=== PATIENT | male | born 1970 | race Caucasian/White ===

== ENCOUNTER → 2018-06-06 10:13 | Outpatient (CLI) | payer OTHER, SELFPAY ==
--- NOTE | 2018-06-06 10:19 | US_ITS ---
PROCEDURES: ULTRASOUND AORTA REASON FOR EXAM: Male, 48 years old. Screening for abdominal aortic aneurysm. TECHNIQUE: Ultrasound evaluation of the aorta was performed with real-time and static alicea-scale imaging. COMPARISON: None. FINDINGS: There is no elongation or tortuosity of the abdominal aorta. Aorta measures: Proximal 3.0 cm. Middle 2.4 cm. Distal 1.9 cm. Aorta measure transversely: Proximal 3.0 cm. Middle 2.3 cm. Distal 1.9 cm. Right iliac artery measures: 1.0 cm. Right iliac artery measure transversely: 1.0 cm. Left iliac artery measures: 1.1 cm. Left iliac artery measure transversely: 1.0 cm. There is no demonstrated aneurysm.. US/Aorta IMPRESSION: Normal abdominal aorta. Electronically Signed: Tunde Galvan, at 10:39 EST , Service support ,
[2018-06-06 12:42] LABS: Anion Gap 7 (5-15); BUN 13 mg/dL (7-18); BUN/Creat Ratio 15.1 RATIO (10-20); Calcium,Total 9.2 mg/dL (8.5-10.1); Chloride 105 mmol/L (98-107); Cholesterol 190 mg/dL (200); Creatinine, Serum 0.86 mg/dL (0.70-1.30); EST Glomerular Filtration Rate 100 mL/min (>60); Est Glom Filt Rate - Afr Amer 121 mL/min (>60); Glucose 87 mg/dL (74-106); High Density Lipoprotein 41 mg/dL; Potassium 4.3 mmol/L (3.5-5.1); Sodium Level 141 mmol/L (136-145); Triglycerides 92 mg/dL; Very Low Density Lipoprotein 18 mg/dL (5-40)
--- OUTSIDE RECORDS SUMMARY | 2018-08-08 12:55 | XMS RPT_ITS ---
:1970 Author Organization OHIP Care Team Providers Name Role Phone Saúl Blair Attending Unavailable Saúl Blair Referring Unavailable Saúl Blair Primary Care Unavailable PROBLEMS PROBLEMS No Problem Records FoundPROCEDURES PROCEDURES No Procedure Records FoundRESULTS RESULTS BASIC METABOLIC Collected: 06/06/2018 Status: F Source: S[place] PROFILE (BMP) 11:02 AM [facility] REPOSITORY TYPE CODE TESTS RESULT OUT OF RANGE REFERENCE UNITS LAB L501.0100 74-106 mg/dL Normal GLU 87 Result Comment: Please note revised GLUCOSE reference range effective 2017. LAB L501.1000 7-18 mg/dL Normal BUN 13 LAB L501.1100 0.70-1.30 mg/dL Normal CREAT,SERUM 0.86 Result Comment: The validity of the calculated GFR AND GFRAA in patients over 70 years has not been determined. Clinical correlation is essential. LAB L501.1110 >60 mL/min Normal EST GFR 100 Result Comment: Non- GFR Calc LAB L501.1115 >60 mL/min Normal EST GFR - AA 121 Result Comment: GFR Calc LAB L501.1300 10-20 RATIO Normal BUN/CRE 15.1 LAB L501.2200 8.5-10.1 mg/dL CA Normal 9.2 LAB L501.5300 136-145 mmol/L NA Normal 141 LAB L501.5600 3.5-5.1 mmol/L K Normal 4.3 LAB L501.5900 98-107 mmol/L CL Normal 105 LAB L501.6100 21.0-32.0 mmol/L Normal CO2 29.0 LAB L501.6200 5-15 Normal GAP 7 Performed By: #### L500.2500, L500.4100, L501.9910 #### [facility] [address] [place], [address] LIPID PROFILE Collected: 06/06/2018 Status: F Source: SUSANNAH 11:02 AM [facility] REPOSITORY TYPE CODE TESTS RESULT OUT OF RANGE REFERENCE UNITS LAB L501.4900 200 mg/dL Normal CHOL 190 Result Comment: <200 mg/dL Desirable 200-240 mg/dL Borderline >240 mg/dL High Risk LAB L501.5000 mg/dL Normal TRIG 92 Result Comment: The drugs N-Acetylcysteine and Metamizole may falsely depress this assay. Serum Triglycerides Reference Interval Normal <150 mg/dL Borderline high 150 - 199 mg/dL High 200 - 499 mg/dL Very High > or = 500 mg/dL LAB L501.6400 mg/dL Normal HDL 41 Result Comment: The drugs N-Acetylcysteine and Metamizole may falsely depress this assay. Reference Range HDL <40 mg/dL Low HDL Cholesterol HDL >or= 60 mg/dL High HDL Cholesterol LAB L501.6500 0-130 mg/dL High LDL 131 LAB L501.6600 5-40 mg/dL Normal VLDL 18 Performed By: #### L500.2500, L500.4100, L501.9910 #### [facility] [address] [place], [address] PSA,TOTAL - ANNUAL Collected: 06/06/2018 Status: F Source: SUSANNA[place] SCREEN 11:02 AM [facility] REPOSITORY TYPE CODE TESTS RESULT OUT OF RANGE REFERENCE UNITS LAB L501.9910 0.00-4.00 ng/mL Normal PSA,TOT 1.00 SCREEN Result Comment: This test was performed using the TPSA assay method for the Kamin[employer] chemistry system. Values obtained with different assay methods cannot be used interchangably. When changing PSA assays in the course of monitoring a patient, additional sequential testing should be carried out to confirm baseline values. Performed By: #### L500.2500, L500.4100, L501.9910 #### [facility] [address] [place], [address] AORTA Observed: 06/06/2018 Status: F Source: SUSANNAH 10:19 AM [facility] REPOSITORY [facility] Imaging Services [address] [place] [address] Aorta MR#: [id number] Acct: [id number] Name: RAPHAEL TAVARES Rep #: [id number] : 1970 M 48 From: Tunde Galvan MD PCP: Saúl Blair MD Status: REG CLI Study: Aorta Date of Exam: 06/06/18 Exam# [id number] Ordering Dr: Allen Blair MD PROCEDURES: ULTRASOUND AORTA REASON FOR EXAM: Male, 48 years old. Screening for abdominal aortic aneurysm. TECHNIQUE: Ultrasound evaluation of the aorta was performed with real-time and static alicea-scale imaging. COMPARISON: None. FINDINGS: There is no elongation or tortuosity of the abdominal aorta. Aorta measures: Proximal 3.0 cm. Middle 2.4 cm. Distal 1.9 cm. Aorta measure transversely: Proximal 3.0 cm. Middle 2.3 cm. Distal 1.9 cm. Right iliac artery measures: 1.0 cm. Right iliac artery measure transversely: 1.0 cm. Left iliac artery measures: 1.1 cm. Left iliac artery measure transversely: 1.0 cm. There is no demonstrated aneurysm.. US/Aorta IMPRESSION: Normal abdominal aorta. Electronically Signed: Tunde Galvan, at 10:39 EST , Service support , CC: Saúl Blair MD Invoice Control Clerk: Signed ALLERGIES ALLERGIES No Allergies Records FoundENCOUNTERS ENCOUNTERS ADMIT/DISCHARGE ACCOUNT ADMITTING ENCOUNTER LOCATION SOURCE NUMBER CLASS 06/06/2018 [id number] Ambulatory [facility] 6 [facility] ing:US Repository PAYERS PAYERS ENCOUNTER GUARANTOR PAYER SUBSCRIBER SOURCE 06/06/2018 RAPHAEL L Primary RAPHAEL Gaston [id number] Insurance:AETNAPolicy REYNOLDSDOB: [facility] [place] Number: [id number] [place] [id number] Repository [address]Cji: (300) Date:[id number] [phone] () [id number] SIGIFREDO MARIN [id number]: 06/06/2018 Secondary RAPHAEL Gaston Insurance:[facility] PACKAGE REYNOLDSDOB: [facility] Number: [id number] [id number] Repository Date:2018-05-31 06/06/2018 Tertiary NOT GIVENVIJI Gaston Insurance:SELF PAY [facility] Number: Effective Repository Date:2018-05-31
== END ==
PROVIDERS: Family Provider Family Medicine; PCP Family Medicine; Referring Provider Family Medicine; Visit Provider Family Medicine
DX: Z13.1 Encounter for screening for diabetes mellitus (principal); Z13.220 Encounter for screening for lipoid disorders; Z12.5 Encounter for screening for malignant neoplasm of prostate; Z82.49 Family history of ischemic heart disease and other diseases of the circulatory system
CPT/HCPCS: 36415; 76775; 80048; 80061; 84153; G0103

== ENCOUNTER → 2018-12-27 16:58 | Outpatient (CLI) | payer OTHER, SELFPAY ==
--- NOTE | 2018-12-27 17:00 | RAD_ITS ---
STUDY: X-RAY - ABDOMEN/PELVIS REASON FOR EXAM: Male, 48 years old. Pain and decrease in appetite. TECHNIQUE: 2 view abdomen. COMPARISON: None. FINDINGS: Normal visualized lung bases. There is an unremarkable bowel gas pattern. There is no demonstrated free abdominal air. The visualized liver, spleen and kidneys are grossly normal in size and morphology. Degenerative changes lumbar spine. Pelvic calcifications likely phleboliths. RAD/Abd Inc Decub and/or Erect IMPRESSION: No acute findings. Electronically Signed: Andi Lyman, at 22:31 EDT Tel , Service support ,
--- NOTE | 2018-12-27 17:00 | RAD_ITS ---
STUDY: X-RAY CHEST REASON FOR EXAM: Male, 48 years old. Cough TECHNIQUE: PA and lateral views of the chest COMPARISON: None. FINDINGS: The lungs are clear. There are no pleural effusions. There is no pneumothorax. The heart is normal in size. The visualized osseous structures are within normal limits. RAD/Chest PA and Lateral IMPRESSION: No acute thoracic pathology. Electronically Signed: Gerardo Michaels, at 19:50 EDT Tel , Service support ,
[2018-12-27 17:38] LABS: Absolute Lymphocyte Count 0.68 X10^3/uL (0.83-4.51); Absolute Neutrophil Count 3.9 X10^3/uL (2.0-7.7); Basophil# 0.02 X10^3/uL; Basophil% 0.3 % (0-1); Eosinophil# 0.08 X10^3/uL; Eosinophils% 1.4 % (0-5); Hematocrit 37.2 % (40-54); Hemoglobin 11.4 g/dL (13.0-16.5); Lymphocyte # 0.68 X10^3/ul (4.0); Lymphocyte % 11.5 % (19-41); Mean Corp Hgb Conc 30.6 g/dL (32-36); Mean Corpuscular Hgb 23.8 pg (27.0-32.0); Mean Corpuscular Volume 77.8 fL (80-94); Mean Platelet Vol. 8.8 fl (6.2-12.0); Monocyte# 1.15 X10^3/uL; Monocyte% 19.5 % (0-10); NRBC Flagged by Analyzer 0 % (0-5); Neutrophil # 3.92 X10^3/uL (2.7-7.7); Neutrophil % 66.6 % (47-70); Platelet Count 373 K/mm3 (150-450); RBC Distribution Width CV 14.4 % (11.6-14.6); RBC Distribution Width SD 40.3 fl (35.1-43.9); Red Blood Count 4.78 M/mm3 (4.6-6.2); White Blood Count 5.9 K/mm3 (4.4-11.0)
[2018-12-27 17:42] LABS: Color, Urine Yellow (Yellow); Glucose, Dipstick Normal (Normal); Ketone-Dipstick 5 mg/dl (Negative); Leukocyte Esterase-Dipstick 25 /ul (Negative); Nitrite-Dipstick Negative (Negative); Occult Blood-Urine 10 /ul (Negative); Protein-Dipstick 30 mg/dl (Negative); Urine Clarity Clear (Clear); Urine Urobilinogen 8 mg/dl (Normal)
[2018-12-27 17:54] LABS: Erythrocyte Sedimentation Rate 55 mm/hr (0-20)
[2018-12-27 17:57] LABS: Urine Bilirubin Dipstick 1 mg/dL (Negative)
[2018-12-27 18:10] LABS: Microalbumin,Random Urine 27.4 mg/L (NO RANGE EST.); Microalbumin:Creatinine Ratio 9.5 mg/g CRE (<30 mg/g CRE)
[2018-12-27 18:12] LABS: ALB/GLOB Ratio 0.6 RATIO (0.9-2.4); AST(SGOT) 38 U/L (15-37); Alanine Aminotransfer ALT/SGPT 73 U/L (16-61); Alkaline Phosphatase 278 U/L (45-117); Anion Gap 9 (5-15); BUN 13 mg/dL (7-18); BUN/Creat Ratio 13.9 RATIO (10-20); Calcium,Total 9.5 mg/dL (8.5-10.1); Chloride 102 mmol/L (98-107); Creatinine, Serum 0.93 mg/dL (0.70-1.30); EST Glomerular Filtration Rate 91 mL/min (>60); Est Glom Filt Rate - Afr Amer 110 mL/min (>60); Ferritin 548 ng/mL (26-388); Glucose 91 mg/dL (74-106); Iron 19 ug/dL (65-175); Potassium 3.5 mmol/L (3.5-5.1); Sodium Level 139 mmol/L (136-145); Thyroid Stim Hormone (TSH) 0.81 uIU/mL (0.358-3.74)
== END ==
PROVIDERS: Family Provider Family Medicine; PCP Family Medicine; Referring Provider Family Medicine; Visit Provider Family Medicine
DX: R05 Cough (principal); R50.9 Fever, unspecified; R63.0 Anorexia; R53.83 Other fatigue
CPT/HCPCS: 36415; 71046; 74019; 80053; 81002; 82043; 82570; 82728; 83540; 84443; 85025; 85652; 86140; 87077; 87086; 87088

== ENCOUNTER → 2018-12-28 11:17 | Outpatient (CLI) | payer OTHER, SELFPAY ==
--- NOTE | 2018-12-28 11:36 | CT_ITS ---
STUDY: CT ABDOMEN AND PELVIS WITH CONTRAST REASON FOR EXAM: Male, 48 years old. Anemia. 6 week history of intermittent fevers and decreased appetite. RADIATION DOSAGE (If Supplied By Facility): CTDIvol = ( 17.54 ) mGy, DLP = ( 1171.58 ) mGycm TECHNIQUE: Transaxial images were obtained from the dome of the diaphragm to the symphysis pubis with oral contrast. 100mL IV/Oral Isovue 300 was administered. Sagittal and coronal images were reconstructed. Individualized dose optimization techniques were used for this CT. COMPARISON: None. FINDINGS: The visualized lung bases are unremarkable. There is a 1.4 cm lymph node in the right retrocrural space. The visualized portions of the heart are within normal limits. Normal liver. Normal gallbladder and extrahepatic biliary system. Normal spleen. Normal pancreas. Normal bilateral adrenal glands. Normal right kidney. Normal left kidney. Normal visualized stomach. Normal small intestine. There are scattered colonic diverticula consistent with diverticulosis. The appendix is visualized and appears normal. There is scattered atherosclerotic calcification of the abdominal aorta, without a demonstrated aneurysm. Normal inferior vena cava. There is retroperitoneal lymphadenopathy with enlarged nodes greater than 10-15mm in the short axis. Multiple enlarged lymph nodes are seen in the report of the mesentery. Normal urinary bladder. There are prostatic calcifications. Normal abdominal wall. Small benign-appearing bilateral inguinal lymph nodes. Lytic lesion is seen in the superior endplate of the L4 vertebrae as well as in the anterior superior aspect of the L1 vertebrae and left lateral anterior aspect of the L1 vertebrae. Bony metastasis should be ruled out. CT/Abdomen/Pelvis WITH Contrast IMPRESSION: Abnormal retroperitoneal lymphadenopathy as well as adenopathy in the root of the mesentery. Lymphoma should be ruled out. Lymph node is also seen in the right retrocrural region. Bony metastasis should be ruled out. Electronically Signed: Tunde Galvan, at 14:21 EDT , Service support ,
== END ==
PROVIDERS: Family Provider Family Medicine; PCP Family Medicine; Referring Provider Family Medicine; Visit Provider Family Medicine
DX: D64.9 Anemia, unspecified (principal); R74.8 Abnormal levels of other serum enzymes
CPT/HCPCS: 74177; Q9967

== ENCOUNTER → 2019-01-03 16:23 | Outpatient (CLI) | payer OTHER, SELFPAY ==
[2019-01-02 15:42] VITALS: BMI 28.7
--- NOTE | 2019-01-03 16:25 | US_ITS ---
STUDY: ABDOMINAL ULTRASOUND - RIGHT UPPER QUADRANT REASON FOR VISIT: Male, 48 years old. Elevated LFTs TECHNIQUE: Ultrasound evaluation of the right upper quadrant was performed with real-time and static alicea-scale imaging. TECHNICAL QUALITY: Limited. Examination limited by bowel gas. COMPARISON: CT scan from 12/28/2018 FINDINGS: Liver: The liver measures 17.5 cm. There is normal echogenicity of the liver. The bile ducts are mildly dilated according to the glass products inspector, however a recent CT does not show any evidence of intra or extrahepatic biliary dilatation.. There is hepatic color flow. The direction of portal flow is hepatopetal. There is no demonstrated mass lesion. Gallbladder: Normal distended gallbladder. The gallbladder wall measures 2 mm. There is a negative sonographic Ashraf's sign. There is no pericholecystic fluid. There are no gallstones. Common Bile Duct (C.B.D.): The common bile duct measures 5 mm. Pancreas: Visualized pancreas is sonographically normal. Right Kidney: Normal size of the right kidney. The right kidney measures 11.9 x 5.5 x 5.3 cm. Normal renal cortex. The right cortex measures 1.3 cm. There is no demonstrated renal mass or cyst. There is no right hydronephrosis. US/Abdomen Limited IMPRESSION: Manager [employer] notes possible intrahepatic biliary dilatation but a recent CT does not show evidence of this. Remaining visualized solid organs are unremarkable Electronically Signed: Tommy Pearce MD at 17:18 EDT , Service support ,
== END ==
PROVIDERS: Family Provider Family Medicine; PCP Family Medicine; Referring Provider Internal Medicine Hematology & Oncology; Visit Provider Internal Medicine Hematology & Oncology
DX: R59.1 Generalized enlarged lymph nodes (principal); R89.9 Unspecified abnormal finding in specimens from other organs, systems and tissues
CPT/HCPCS: 76705

== ENCOUNTER → 2019-01-05 09:04 | Outpatient (CLI) | payer OTHER, SELFPAY ==
[2019-01-02 15:42] VITALS: BMI 28.7
--- NOTE | 2019-01-05 09:10 | CT_ITS ---
STUDY: CT CHEST WITH CONTRAST REASON FOR EXAM: Male, 48 years old. Lymphadenopathy RADIATION DOSAGE (If Supplied By Facility): CTDIvol = ( 12.91 ) mGy, DLP = ( 594.79 ) mGycm TECHNIQUE: Transaxial imaging was performed following intravenous administration of 100ML IV Isovue 300. Individualized dose optimization techniques were used for this CT. COMPARISON: Chest radiograph on December 27, 2018 FINDINGS: The lungs are normal. There is no demonstrated pleural abnormality. Normal heart and pericardium. There are enlarged nodes in the posterior mediastinum in the lower thoracic cavity largest measuring 1.85 x 1.54 cm. Normal hilar regions. Normal enhanced pulmonary arteries. Normal aorta arch and descending thoracic aorta. Dorsal spine demonstrates spondylosis. Lytic pathologic fracture of L1. There are multiple enlarged periaortic nodes at the level of the left renal hilus CT/Chest WITH Contrast IMPRESSION: Posterior mediastinal adenopathy. Other findings as above Electronically Signed: Gerardo Arteaga MD at 18:12 EDT , Service support ,
== END ==
PROVIDERS: Family Provider Family Medicine; PCP Family Medicine; Referring Provider Internal Medicine Hematology & Oncology; Visit Provider Internal Medicine Hematology & Oncology
DX: R59.1 Generalized enlarged lymph nodes (principal)
CPT/HCPCS: 71260; Q9967

== ENCOUNTER → 2019-01-29 15:13 | Outpatient (CLI) | payer OTHER, SELFPAY ==
[2019-01-02 15:42] VITALS: BMI 28.7
[2019-01-29 16:16] LABS: Absolute Lymphocyte Count 0.68 X10^3/uL (0.83-4.51); Absolute Neutrophil Count 1.7 X10^3/uL (2.0-7.7); Basophil# 0.01 X10^3/uL; Basophil% 0.4 % (0-1); Eosinophils% 3.9 % (0-5); Hematocrit 32.4 % (40-54); Hemoglobin 9.7 g/dL (13.0-16.5); Lymphocyte # 0.68 X10^3/ul (4.0); Lymphocyte % 26.6 % (19-41); Mean Corp Hgb Conc 29.9 g/dL (32-36); Mean Corpuscular Hgb 22.6 pg (27.0-32.0); Mean Corpuscular Volume 75.3 fL (80-94); Monocyte# 0.03 X10^3/uL; Monocyte% 1.2 % (0-10); NRBC Flagged by Analyzer 0 % (0-5); Neutrophil # 1.69 X10^3/uL (2.7-7.7); Neutrophil % 65.9 % (47-70); POSITIVE MORPHOLOGY YES; Platelet Count 319 K/mm3 (150-450); RBC Distribution Width CV 20.5 % (11.6-14.6); RBC Distribution Width SD 54.3 fl (35.1-43.9); White Blood Count 2.6 K/mm3 (4.4-11.0)
[2019-01-29 16:27] LABS: ALB/GLOB Ratio 0.6 RATIO (0.9-2.4); AST(SGOT) 24 U/L (15-37); Alanine Aminotransfer ALT/SGPT 79 U/L (16-61); Albumin, Serum 2.8 g/dL (3.2-5.0); Alkaline Phosphatase 340 U/L (45-117); Anion Gap 4 (5-15); BUN 18 mg/dL (7-18); BUN/Creat Ratio 28.4 RATIO (10-20); Calcium,Total 9.7 mg/dL (8.5-10.1); Chloride 100 mmol/L (98-107); Creatinine, Serum 0.63 mg/dL (0.70-1.30); EST Glomerular Filtration Rate 142 mL/min (>60); Est Glom Filt Rate - Afr Amer 172 mL/min (>60); Globulin 4.8 g/dL (2.2-4.2); Glucose 124 mg/dL (74-106); Potassium 3.8 mmol/L (3.5-5.1); Protein, Total 7.6 g/dL (6.4-8.2); Sodium Level 135 mmol/L (136-145)
[2019-01-29 16:35] LABS: Differential Indicated SCAN CRITERIA MET
[2019-01-29 16:56] LABS: Anisocytosis 1+; Hypochromasia 1+; Microcytosis 1+; Platelet Estimate ADEQUATE (ADEQ)
[2019-01-29 16:57] LABS: Ovalocyte RARE
[2019-01-30 00:02] LABS: Xtra Tube EP Lab EXTRA TUBE
[2019-01-30 13:09] LABS: Pathologist Review Reviewed
== END ==
PROVIDERS: Family Provider Family Medicine; PCP Family Medicine
DX: C83.38 Diffuse large B-cell lymphoma, lymph nodes of multiple sites (principal)
CPT/HCPCS: 36415; 36592; 80053; 85025; A4216

== ENCOUNTER → 2019-02-01 15:27 | Outpatient (CLI) | payer OTHER, SELFPAY ==
[2019-01-02 15:42] VITALS: BMI 28.7
[2019-02-01 15:58] LABS: Absolute Lymphocyte Count 0.47 X10^3/uL (0.83-4.51); Absolute Neutrophil Count 0.1 X10^3/uL (2.0-7.7); Basophil# 0.01 X10^3/uL; Basophil% 1.4 % (0-1); Eosinophil# 0.04 X10^3/uL; Eosinophils% 5.8 % (0-5); Hemoglobin 9.4 g/dL (13.0-16.5); Lymphocyte # 0.47 X10^3/ul (4.0); Lymphocyte % 68.1 % (19-41); Mean Corp Hgb Conc 30.3 g/dL (32-36); Mean Corpuscular Hgb 23.2 pg (27.0-32.0); Mean Corpuscular Volume 76.4 fL (80-94); Mean Platelet Vol. 9.1 fl (6.2-12.0); Monocyte# 0.09 X10^3/uL; NRBC Flagged by Analyzer 0 % (0-5); Neutrophil # 0.08 X10^3/uL (2.7-7.7); Neutrophil % 11.7 % (47-70); POSITIVE COUNT YES; POSITIVE DIFFERENTIAL YES; POSITIVE MORPHOLOGY YES; Platelet Count 189 K/mm3 (150-450); RBC Distribution Width CV 21.3 % (11.6-14.6); RBC Distribution Width SD 54.8 fl (35.1-43.9); Red Blood Count 4.06 M/mm3 (4.6-6.2)
[2019-02-01 16:23] LABS: Differential Indicated SCAN CRITERIA MET; White Blood Count 0.7 K/mm3 (4.4-11.0)
[2019-02-01 16:35] LABS: Differential Comment SEE COMMENTS; Platelet Estimate ADEQUATE (ADEQ)
[2019-02-01 16:36] LABS: Anisocytosis RARE; Microcytosis RARE
[2019-02-02 15:19] LABS: Pathologist Review Reviewed
== END ==
PROVIDERS: Family Provider Family Medicine; PCP Family Medicine; Referring Provider Internal Medicine; Visit Provider Internal Medicine
DX: C83.38 Diffuse large B-cell lymphoma, lymph nodes of multiple sites (principal)
CPT/HCPCS: 36592; 85025; A4216

== ENCOUNTER → 2019-02-05 15:16 | Outpatient (CLI) | payer OTHER, SELFPAY ==
[2019-01-02 15:42] VITALS: BMI 28.7
[2019-02-05 16:15] LABS: Absolute Lymphocyte Count 0.74 X10^3/uL (0.83-4.51); Absolute Neutrophil Count 0.2 X10^3/uL (2.0-7.7); Basophil# 0.02 X10^3/uL; Basophil% 1.3 % (0-1); Eosinophil# 0.11 X10^3/uL; Eosinophils% 6.9 % (0-5); Hematocrit 33.1 % (40-54); Hemoglobin 10.1 g/dL (13.0-16.5); Lymphocyte # 0.74 X10^3/ul (4.0); Lymphocyte % 46.5 % (19-41); Mean Corp Hgb Conc 30.5 g/dL (32-36); Mean Corpuscular Hgb 23.8 pg (27.0-32.0); Mean Corpuscular Volume 77.9 fL (80-94); Mean Platelet Vol. 8.7 fl (6.2-12.0); Monocyte# 0.47 X10^3/uL; Monocyte% 29.6 % (0-10); NRBC Flagged by Analyzer 0 % (0-5); Neutrophil # 0.22 X10^3/uL (2.7-7.7); Neutrophil % 13.8 % (47-70); POSITIVE DIFFERENTIAL YES; POSITIVE MORPHOLOGY YES; Platelet Count 249 K/mm3 (150-450); RBC Distribution Width CV 23.6 % (11.6-14.6); RBC Distribution Width SD 63.7 fl (35.1-43.9); Red Blood Count 4.25 M/mm3 (4.6-6.2); White Blood Count 1.6 K/mm3 (4.4-11.0)
[2019-02-05 16:50] LABS: Differential Indicated SCAN CRITERIA MET
[2019-02-05 16:51] LABS: Platelet Estimate ADEQUATE (ADEQ)
[2019-02-05 16:52] LABS: Anisocytosis 1+; Microcytosis 1+
[2019-02-05 16:57] LABS: ALB/GLOB Ratio 0.7 RATIO (0.9-2.4); AST(SGOT) 17 U/L (15-37); Alanine Aminotransfer ALT/SGPT 29 U/L (16-61); Albumin, Serum 3.1 g/dL (3.2-5.0); Alkaline Phosphatase 230 U/L (45-117); Anion Gap 7 (5-15); BUN 11 mg/dL (7-18); BUN/Creat Ratio 15.3 RATIO (10-20); Calcium,Total 9.3 mg/dL (8.5-10.1); Chloride 103 mmol/L (98-107); Creatinine, Serum 0.72 mg/dL (0.70-1.30); EST Glomerular Filtration Rate 122 mL/min (>60); Est Glom Filt Rate - Afr Amer 148 mL/min (>60); Globulin 4.6 g/dL (2.2-4.2); Glucose 114 mg/dL (74-106); Protein, Total 7.7 g/dL (6.4-8.2); Sodium Level 139 mmol/L (136-145)
== END ==
PROVIDERS: Family Provider Family Medicine; PCP Family Medicine; Referring Provider Internal Medicine; Visit Provider Internal Medicine
DX: C83.38 Diffuse large B-cell lymphoma, lymph nodes of multiple sites (principal)
CPT/HCPCS: 36592; 80053; 85025; A4216

== ENCOUNTER → 2019-02-08 15:25 | Outpatient (CLI) | payer OTHER, SELFPAY ==
[2019-01-02 15:42] VITALS: BMI 28.7
[2019-02-08 15:50] LABS: Hemoglobin 10.2 g/dL (13.0-16.5); Mean Corpuscular Hgb 24.1 pg (27.0-32.0); Mean Corpuscular Volume 80.2 fL (80-94); Mean Platelet Vol. 8.6 fl (6.2-12.0); POSITIVE COUNT YES; POSITIVE DIFFERENTIAL YES; POSITIVE MORPHOLOGY YES; Platelet Count 358 K/mm3 (150-450); RBC Distribution Width CV 23.4 % (11.6-14.6); RBC Distribution Width SD 65.5 fl (35.1-43.9); Red Blood Count 4.24 M/mm3 (4.6-6.2); White Blood Count 2.7 K/mm3 (4.4-11.0)
[2019-02-08 15:56] LABS: Differential Indicated MANUAL DIFF
[2019-02-08 16:35] LABS: Blast 1 % (0-0); Eosinophil 4 % (0-5); Lymphocyte 37 % (19-41); Metamyelocyte 2 % (0-1); Monocyte 14 % (0-10); Myelocyte 3 (0-0); Neutrophil-Band 5 % (0-5); Neutrophil-Segmented 34 % (47-70); Total Cells Counted 100 (MANUAL DIFF)
[2019-02-08 16:37] LABS: Absolute Neutrophil Count 1.1 X10^3/uL (2.0-7.7); Neutrophil # 1.05 X10^3/uL (2.7-7.7)
[2019-02-08 16:38] LABS: Anisocytosis 4+; Differential Comment SCANNED
[2019-02-08 16:39] LABS: Platelet Estimate ADEQUATE (ADEQ)
[2019-02-09 14:42] LABS: Pathologist Review Reviewed
== END ==
PROVIDERS: Family Provider Family Medicine; PCP Family Medicine; Referring Provider Internal Medicine; Visit Provider Internal Medicine
DX: C83.38 Diffuse large B-cell lymphoma, lymph nodes of multiple sites (principal)
CPT/HCPCS: 36592; 85025; A4216

== ENCOUNTER → 2019-02-12 14:55 | Outpatient (CLI) | payer OTHER, SELFPAY ==
[2019-01-02 15:42] VITALS: BMI 28.7
[2019-02-12 15:37] LABS: Hematocrit 37.8 % (40-54); Hemoglobin 11.4 g/dL (13.0-16.5); Mean Corp Hgb Conc 30.2 g/dL (32-36); Mean Corpuscular Hgb 24.3 pg (27.0-32.0); Mean Corpuscular Volume 80.6 fL (80-94); Mean Platelet Vol. 8.4 fl (6.2-12.0); POSITIVE COUNT YES; POSITIVE MORPHOLOGY YES; Platelet Count 376 K/mm3 (150-450); RBC Distribution Width CV 23.9 % (11.6-14.6); RBC Distribution Width SD 67.9 fl (35.1-43.9); Red Blood Count 4.69 M/mm3 (4.6-6.2); White Blood Count 5.9 K/mm3 (4.4-11.0)
[2019-02-12 15:39] LABS: Differential Indicated MANUAL DIFF
[2019-02-12 15:54] LABS: ALB/GLOB Ratio 0.9 RATIO (0.9-2.4); AST(SGOT) 20 U/L (15-37); Alanine Aminotransfer ALT/SGPT 31 U/L (16-61); Albumin, Serum 3.5 g/dL (3.2-5.0); Alkaline Phosphatase 165 U/L (45-117); Anion Gap 8 (5-15); BUN 13 mg/dL (7-18); BUN/Creat Ratio 17.5 RATIO (10-20); Calcium,Total 9.4 mg/dL (8.5-10.1); Chloride 106 mmol/L (98-107); Creatinine, Serum 0.74 mg/dL (0.70-1.30); EST Glomerular Filtration Rate 118 mL/min (>60); Est Glom Filt Rate - Afr Amer 143 mL/min (>60); Glucose 106 mg/dL (74-106); Potassium 3.8 mmol/L (3.5-5.1); Protein, Total 7.5 g/dL (6.4-8.2); Sodium Level 142 mmol/L (136-145)
[2019-02-12 16:01] LABS: Basophil 2 % (0-1); Eosinophil 2 % (0-5); Lymphocyte 20 % (19-41); Metamyelocyte 1 % (0-1); Monocyte 7 % (0-10); Neutrophil-Band 2 % (0-5); Neutrophil-Segmented 66 % (47-70); Total Cells Counted 100 (MANUAL DIFF)
[2019-02-12 16:02] LABS: Anisocytosis 2+
[2019-02-12 16:03] LABS: Red Cell Morphology N CHROM NORMAL (NORM C&C)
[2019-02-12 16:04] LABS: Platelet Estimate ADEQUATE (ADEQ)
[2019-02-12 16:06] LABS: Absolute Lymphocyte Count 1.18 X10^3/uL (0.83-4.51)
[2019-02-13 14:13] LABS: Pathologist Review Reviewed
== END ==
PROVIDERS: Family Provider Family Medicine; PCP Family Medicine; Referring Provider Internal Medicine; Visit Provider Internal Medicine
DX: C83.38 Diffuse large B-cell lymphoma, lymph nodes of multiple sites (principal)
CPT/HCPCS: 36415; 36592; 80053; 85025; 86850; 86900; 86901; A4216

== ENCOUNTER → 2019-03-15 13:57 | Outpatient (CLI) | payer OTHER, SELFPAY ==
[2019-01-02 15:42] VITALS: BMI 28.7
--- NOTE | 2019-03-15 14:25 | NURSING ---
pt c/o of feeling lightheaded and hot during port access, chair reclined to semi-fowlers, finished accessing port, cool wash cloth applied to forehead and neck, pt report feeling better see vitals at discharge. Pt discharged home with at side.
[2019-03-15 14:30] VITALS: BP 118/98; PULSE 122; RESP 18; O2SAT 98
[2019-03-15 14:36] LABS: Hematocrit 37.7 % (40-54); Hemoglobin 11.8 g/dL (13.0-16.5); Mean Corp Hgb Conc 31.3 g/dL (32-36); Mean Corpuscular Hgb 25.9 pg (27.0-32.0); Mean Corpuscular Volume 82.7 fL (80-94); Mean Platelet Vol. 8.9 fl (6.2-12.0); POSITIVE COUNT YES; POSITIVE MORPHOLOGY YES; Platelet Count 132 K/mm3 (150-450); RBC Distribution Width CV 19.9 % (11.6-14.6); RBC Distribution Width SD 59.7 fl (35.1-43.9); Red Blood Count 4.56 M/mm3 (4.6-6.2); White Blood Count 15.4 K/mm3 (4.4-11.0)
[2019-03-15 14:41] LABS: Differential Indicated MANUAL DIFF
[2019-03-15 14:52] LABS: ALB/GLOB Ratio 1.1 RATIO (0.9-2.4); AST(SGOT) 15 U/L (15-37); Alanine Aminotransfer ALT/SGPT 47 U/L (16-61); Albumin, Serum 3.7 g/dL (3.2-5.0); Alkaline Phosphatase 108 U/L (45-117); Anion Gap 9 (5-15); BUN 15 mg/dL (7-18); BUN/Creat Ratio 18.6 RATIO (10-20); Calcium,Total 9.3 mg/dL (8.5-10.1); Chloride 105 mmol/L (98-107); Creatinine, Serum 0.81 mg/dL (0.70-1.30); EST Glomerular Filtration Rate 107 mL/min (>60); Est Glom Filt Rate - Afr Amer 130 mL/min (>60); Globulin 3.5 g/dL (2.2-4.2); Glucose 131 mg/dL (74-106); Potassium 3.3 mmol/L (3.5-5.1); Protein, Total 7.2 g/dL (6.4-8.2); Sodium Level 142 mmol/L (136-145)
[2019-03-15 15:01] LABS: Eosinophil 6 % (0-5); Lymphocyte 8 % (19-41); Metamyelocyte 2 % (0-1); Neutrophil-Band 3 % (0-5); Neutrophil-Segmented 81 % (47-70); Total Cells Counted 100 (MANUAL DIFF)
[2019-03-15 15:03] LABS: Absolute Neutrophil Count 12.9 X10^3/uL (2.0-7.7); Platelet Estimate ADEQUATE (ADEQ); Red Cell Morphology NORM C+C NORMAL (NORM C&C)
[2019-03-16 11:53] LABS: Pathologist Review Reviewed
== END ==
PROVIDERS: Family Provider Family Medicine; PCP Family Medicine; Referring Provider Internal Medicine; Visit Provider Internal Medicine
DX: C83.38 Diffuse large B-cell lymphoma, lymph nodes of multiple sites (principal)
CPT/HCPCS: 36591; 80053; 85025; A4216

== ENCOUNTER → 2019-03-19 13:36 | Outpatient (CLI) | payer OTHER, SELFPAY ==
[2019-01-02 15:42] VITALS: BMI 28.7
[2019-03-19 14:18] LABS: Hematocrit 38.7 % (40-54); Hemoglobin 12.1 g/dL (13.0-16.5); Mean Corp Hgb Conc 31.3 g/dL (32-36); Mean Corpuscular Hgb 26.2 pg (27.0-32.0); Mean Corpuscular Volume 83.8 fL (80-94); Mean Platelet Vol. 9.4 fl (6.2-12.0); POSITIVE COUNT YES; POSITIVE MORPHOLOGY YES; Platelet Count 133 K/mm3 (150-450); RBC Distribution Width CV 20.2 % (11.6-14.6); RBC Distribution Width SD 59.7 fl (35.1-43.9); Red Blood Count 4.62 M/mm3 (4.6-6.2)
[2019-03-19 14:20] LABS: Differential Indicated MANUAL DIFF
[2019-03-19 14:36] LABS: AST(SGOT) 13 U/L (15-37); Alanine Aminotransfer ALT/SGPT 31 U/L (16-61); Albumin, Serum 3.8 g/dL (3.2-5.0); Alkaline Phosphatase 113 U/L (45-117); Anion Gap 7 (5-15); BUN 12 mg/dL (7-18); BUN/Creat Ratio 14.7 RATIO (10-20); Calcium,Total 9.3 mg/dL (8.5-10.1); Chloride 103 mmol/L (98-107); Creatinine, Serum 0.82 mg/dL (0.70-1.30); EST Glomerular Filtration Rate 106 mL/min (>60); Est Glom Filt Rate - Afr Amer 128 mL/min (>60); Globulin 3.7 g/dL (2.2-4.2); Glucose 122 mg/dL (74-106); Potassium 3.9 mmol/L (3.5-5.1); Protein, Total 7.5 g/dL (6.4-8.2); Sodium Level 139 mmol/L (136-145)
[2019-03-19 14:47] LABS: Eosinophil 2 % (0-5); Lymphocyte 19 % (19-41); Metamyelocyte 1 % (0-1); Monocyte 11 % (0-10); Myelocyte 4 (0-0); Neutrophil-Segmented 63 % (47-70); Total Cells Counted 100 (MANUAL DIFF)
[2019-03-19 14:48] LABS: Anisocytosis 1+; Platelet Estimate SLT DEC (ADEQ); Red Cell Morphology N CHROM NORMAL (NORM C&C)
[2019-03-19 15:18] LABS: Absolute Neutrophil Count 4.4 X10^3/uL (2.0-7.7); Neutrophil # 4.41 X10^3/uL (2.7-7.7)
[2019-03-19 15:19] LABS: Absolute Lymphocyte Count 1.33 X10^3/uL (0.83-4.51); Lymphocyte # 1.33 X10^3/ul (4.0)
[2019-03-20 12:47] LABS: Pathologist Review Reviewed
== END ==
PROVIDERS: Family Provider Family Medicine; PCP Family Medicine; Referring Provider Internal Medicine; Visit Provider Internal Medicine
DX: C83.38 Diffuse large B-cell lymphoma, lymph nodes of multiple sites (principal)
CPT/HCPCS: 36591; 80053; 85025; A4216

== ENCOUNTER → 2019-03-23 07:50 | Outpatient (CLI) | payer OTHER, SELFPAY ==
[2019-01-02 15:42] VITALS: BMI 28.7
[2019-03-23 08:16] LABS: Hematocrit 37.7 % (40-54); Hemoglobin 11.6 g/dL (13.0-16.5); Mean Corp Hgb Conc 30.8 g/dL (32-36); Mean Corpuscular Hgb 26.4 pg (27.0-32.0); Mean Corpuscular Volume 85.7 fL (80-94); Mean Platelet Vol. 9.1 fl (6.2-12.0); POSITIVE COUNT YES; POSITIVE MORPHOLOGY YES; Platelet Count 209 K/mm3 (150-450); RBC Distribution Width CV 20.9 % (11.6-14.6); RBC Distribution Width SD 64.4 fl (35.1-43.9); White Blood Count 6.2 K/mm3 (4.4-11.0)
[2019-03-23 08:20] LABS: Differential Indicated MANUAL DIFF
[2019-03-23 08:42] LABS: Eosinophil 1 % (0-5); Lymphocyte 15 % (19-41); Monocyte 5 % (0-10); Neutrophil-Band 12 % (0-5); Neutrophil-Segmented 67 % (47-70); Total Cells Counted 100 (MANUAL DIFF)
[2019-03-23 08:45] LABS: Anisocytosis 2+; Ovalocyte 2+; Platelet Estimate ADEQUATE (ADEQ); Platelet Morphology LARGE
[2019-03-23 08:47] LABS: Absolute Lymphocyte Count 0.93 X10^3/uL (0.83-4.51); Absolute Neutrophil Count 4.9 X10^3/uL (2.0-7.7); Lymphocyte # 0.93 X10^3/ul (4.0)
[2019-03-27 10:41] LABS: Pathologist Review Reviewed
== END ==
PROVIDERS: Family Provider Family Medicine; PCP Family Medicine; Referring Provider Internal Medicine; Visit Provider Internal Medicine
DX: C83.38 Diffuse large B-cell lymphoma, lymph nodes of multiple sites (principal)
CPT/HCPCS: 36591; 85025; A4216

== ENCOUNTER → 2019-03-26 14:38 | Outpatient (CLI) | payer OTHER, SELFPAY ==
[2019-01-02 15:42] VITALS: BMI 28.7
[2019-03-26 15:15] LABS: Absolute Lymphocyte Count 0.92 X10^3/uL (0.83-4.51); Absolute Neutrophil Count 4.5 X10^3/uL (2.0-7.7); Basophil# 0.04 X10^3/uL; Basophil% 0.6 % (0-1); Eosinophil# 0.06 X10^3/uL; Eosinophils% 0.9 % (0-5); Hematocrit 36.3 % (40-54); Hemoglobin 11.1 g/dL (13.0-16.5); Lymphocyte # 0.92 X10^3/ul (4.0); Mean Corp Hgb Conc 30.6 g/dL (32-36); Mean Corpuscular Hgb 26.3 pg (27.0-32.0); Monocyte# 0.94 X10^3/uL; Monocyte% 14.3 % (0-10); NRBC Flagged by Analyzer 0 % (0-5); Neutrophil # 4.53 X10^3/uL (2.7-7.7); Neutrophil % 68.7 % (47-70); POSITIVE MORPHOLOGY YES; Platelet Count 294 K/mm3 (150-450); RBC Distribution Width CV 20.8 % (11.6-14.6); RBC Distribution Width SD 65.1 fl (35.1-43.9); Red Blood Count 4.22 M/mm3 (4.6-6.2); White Blood Count 6.6 K/mm3 (4.4-11.0)
[2019-03-26 15:24] LABS: ALB/GLOB Ratio 1.1 RATIO (0.9-2.4); AST(SGOT) 21 U/L (15-37); Alanine Aminotransfer ALT/SGPT 29 U/L (16-61); Albumin, Serum 3.7 g/dL (3.2-5.0); Alkaline Phosphatase 101 U/L (45-117); Anion Gap 7 (5-15); BUN 12 mg/dL (7-18); BUN/Creat Ratio 12.7 RATIO (10-20); Calcium,Total 9.2 mg/dL (8.5-10.1); Chloride 109 mmol/L (98-107); Creatinine, Serum 0.95 mg/dL (0.70-1.30); EST Glomerular Filtration Rate 89 mL/min (>60); Est Glom Filt Rate - Afr Amer 108 mL/min (>60); Globulin 3.5 g/dL (2.2-4.2); Glucose 98 mg/dL (74-106); Potassium 3.8 mmol/L (3.5-5.1); Protein, Total 7.2 g/dL (6.4-8.2); Sodium Level 142 mmol/L (136-145)
[2019-03-26 15:55] LABS: Differential Comment SCANNED
[2019-03-26 15:56] LABS: Differential Indicated SCAN CRITERIA MET
== END ==
PROVIDERS: Family Provider Family Medicine; PCP Family Medicine; Referring Provider Internal Medicine; Visit Provider Internal Medicine
DX: C83.38 Diffuse large B-cell lymphoma, lymph nodes of multiple sites (principal)
CPT/HCPCS: 36591; 80053; 85025; A4216

== ENCOUNTER 2019-04-27 13:44 | Inpatient (IN) | payer OTHER, SELFPAY ==
[2019-01-02 15:42] VITALS: BMI 28.7
[2019-04-27] VITALS (9 sets, daily range): BP systolic 104–145; BP diastolic 73–98; PULSE 68–128; RESP 16–18; TEMP 36.8–38.8; O2SAT 95–98; BMI 29.4
--- NOTE | 2019-04-27 13:49 | ED.RN ---
this rn informed dr naik of sepsis alert.
[2019-04-27 14:50] LABS: Absolute Lymphocyte Count 0.25 X10^3/uL (0.83-4.51); Absolute Neutrophil Count 0.1 X10^3/uL (2.0-7.7); Basophil# 0.01 X10^3/uL; Eosinophil# 0.08 X10^3/uL; Eosinophils% 15.7 % (0-5); Hematocrit 32.1 % (40-54); Hemoglobin 10.3 g/dL (13.0-16.5); Lymphocyte # 0.25 X10^3/ul (4.0); Mean Corp Hgb Conc 32.1 g/dL (32-36); Mean Corpuscular Hgb 27.8 pg (27.0-32.0); Mean Corpuscular Volume 86.8 fL (80-94); Mean Platelet Vol. 8.7 fl (6.2-12.0); Monocyte# 0.11 X10^3/uL; Monocyte% 21.6 % (0-10); NRBC Flagged by Analyzer 0 % (0-5); Neutrophil # 0.05 X10^3/uL (2.7-7.7); Neutrophil % 9.7 % (47-70); POSITIVE COUNT YES; POSITIVE DIFFERENTIAL YES; POSITIVE MORPHOLOGY YES; Platelet Count 92 K/mm3 (150-450); RBC Distribution Width CV 16.6 % (11.6-14.6); RBC Distribution Width SD 52.8 fl (35.1-43.9)
[2019-04-27] MEDS: Acetaminophen 500 MG Tablet 1000 MG PO (14:53)
[2019-04-27] MEDS: fentaNYL 100 MCG/2 ML Ampul 25 MCG IV (14:53)
[2019-04-27] MEDS: Ondansetron 4 MG/2 ML Vial IV (14:54)
[2019-04-27 14:59] LABS: Prothrombin Time (Protime)PT. 22.6 SECONDS (11.7-14.9)
[2019-04-27 15:00] LABS: Partial Thromboplast Time 38.3 Seconds (24.1-36.2)
[2019-04-27] MEDS: 0.9% Normal Saline 1,000 ML 999 ML IV (15:02)
--- NOTE | 2019-04-27 15:03 | RAD_ITS ---
STUDY: X-RAY CHEST REASON FOR EXAM: Male, 49 years old. Fever. Non-Hodgkin''s lymphoma and chemotherapy. TECHNIQUE: PA and lateral views of the chest. COMPARISON: Comparison is made with prior examination December 27, 2018. FINDINGS: A right-sided portacatheter is seen. The tip is in the right atrium. EKG electrodes are seen. The lungs are clear and expanded. There is no demonstrated pleural abnormality. Normal size heart. Normal mediastinum and federico. Normal visualized pulmonary arteries. Normal visualized aortic arch and descending thoracic aorta. There is demineralization of the osseous structures. Normal visualized ribs, clavicles, and shoulders. There is no demonstrated abnormality of the visualized soft tissue structures of the upper abdomen. RAD/Chest PA and Lateral IMPRESSION: No acute abnormality is seen. Electronically Signed: Tunde Galvan, at 15:25 EST , Service support ,
[2019-04-27 15:16] LABS: ALB/GLOB Ratio 1.1 RATIO (0.9-2.4); AST(SGOT) 13 U/L (15-37); Alanine Aminotransfer ALT/SGPT 46 U/L (16-61); Albumin, Serum 3.5 g/dL (3.2-5.0); Alkaline Phosphatase 75 U/L (45-117); Anion Gap 5 (5-15); BUN 14 mg/dL (7-18); BUN/Creat Ratio 18.7 RATIO (10-20); Chloride 106 mmol/L (98-107); Creatinine, Serum 0.75 mg/dL (0.70-1.30); EST Glomerular Filtration Rate 117 mL/min (>60); Est Glom Filt Rate - Afr Amer 141 mL/min (>60); Estimated Creatinine Clearance 120.31 ml/min; Globulin 3.1 g/dL (2.2-4.2); Glucose 98 mg/dL (74-106); Lactic Acid 1.6 mmol/L (0.4-1.9); Magnesium 1.8 mg/dL (1.6-2.6); Potassium 3.9 mmol/L (3.5-5.1); Protein, Total 6.6 g/dL (6.4-8.2); Sodium Level 141 mmol/L (136-145)
[2019-04-27 15:38] LABS: Differential Indicated SCAN CRITERIA MET; White Blood Count 0.5 K/mm3 (4.4-11.0)
--- NOTE | 2019-04-27 15:39 | ED.RN ---
wbc 0.[address] from the lab[address] dr turpin aware
[2019-04-27 15:47] LABS: Anisocytosis RARE; Differential Comment SEE COMMENTS; Platelet Estimate MOD DEC (ADEQ); Red Cell Morphology N CHROM NORMAL (NORM C&C)
[2019-04-27 15:49] LABS: Bacteria 0 SEEN /hpf (None Seen); Squamous Epithelial Cells - UA 0 SEEN /hpf (0-5); White Blood Cells 0 SEEN /hpf (0-5)
[2019-04-27 16:09] LABS: Color, Urine Yellow (Yellow); Glucose, Dipstick Normal (Normal); Ketone-Dipstick Negative (Negative); Leukocyte Esterase-Dipstick Negative /ul (Negative); Nitrite-Dipstick Negative (Negative); Occult Blood-Urine 250 /ul (Negative); Protein-Dipstick Negative (Negative); Urine Bilirubin Dipstick Negative (Negative); Urine Clarity Clear (Clear); Urine Urobilinogen Normal (Normal)
--- NOTE | 2019-04-27 16:24 | ED.VISSUMM ---
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 He has a history of non-Hodgkin's lymphoma. He reports that he has had 5 out of a planned 6 rounds of chemotherapy. Last round was 5 days ago. This was methotrexate. He was doing well until today when he developed a fever. He states that his temperature at home was 101.9 degrees. He is also had shaking chills. He denies any sore throat or cough. Reports that he is got epigastric crampy abdominal pain for the past 3 days. 5 out of 10 at worst and 4-10 currently. This increased with movement and decreased with belching and Zofran. He has had nausea, but no vomiting or diarrhea. His last bowel was 2 days ago. No dysuria or frequency. No rash, headache, numbness, weakness, or other complaints. Physical Examination: Vitals: 101.8, 145/98, 128, 18, 98% on room air which is not hypoxic. General: Well-nourished and well-developed. Head: Normocephalic atraumatic. Neck: Supple, no lymphadenopathy. No JVD. Nontender. Cardiovascular: Tachycardic regular rhythm. No murmurs. Respiratory: No respiratory distress. Clear to auscultation bilaterally. Abdominal: Soft, mild epigastric tenderness to palpation, nondistended, normal bowel sounds. No guarding, rebound, or peritoneal signs. Back: Nontender. Extremities: Nontender, no edema. Skin: Normal color, no rash. Neurologic: Alert and oriented ?3. Cranial nerves II through XII are intact. Normal strength and sensation. Psych: Normal affect. Test Results: CBC shows a white count of 0.5 with segmented neutrophils of 9.7 giving an absolute neutrophil count of 100. Chem-7 is normal. LFTs show an AST of 13. INR is 2.0. Lactic acid is 1.6. Urinalysis pending. Clinical Impression(s) from Imaging Studies Chest X-Ray 04/27/19 15:03 IMPRESSION: No acute abnormality is seen. Electronically Signed: Tunde Galvan, at 15:25 EST , Service support , Emergency Department Course and Treatment: Patient was given a liter of normal saline IV. He was given meropenem IV. He was given Tylenol p.o. He is resting more comfortably. Treatment Plan: Patient would like to stay here. He is seen Dr. Herman in the past. He was discussed with Dr. Andrea and will be admitted for further evaluation and treatment. Disposition: Admitted in serious condition. Impression: 1. Neutropenic fever. 2. Non-Hodgkin's lymphoma. This note was generated with [employer] dictation software. It may contain incorrect words, spelling, and punctuation that were not noted in review of the chart prior to signing ED Disposition - Plan for ED Patient: Referrals: Allen Blair MD [Primary Care Provider] -
[2019-04-27 16:59] LABS: Mucous, Urine 4+ /hpf (<or=2+); Red Blood Cells-Urine 0-5 SEEN /hpf (0-5)
--- NOTE | 2019-04-27 17:15 | PCM.HP.STD ---
Problem List (1) Neutropenic fever Status: Acute (2) NHL (non-Hodgkin's lymphoma) Status: Chronic Qualifiers: Non-Hodgkin lymphoma type: B-cell (3) Pulmonary embolism Status: Chronic (4) Pancytopenia Status: Chronic History of Present Illness Date of Admission: 04/27/19 Chief Complaint: fever The patient is a 49 year old M with pmhx of NHL, associated PE, who presented to the ER with c/o fever. He has been undergoing chemo at the [facility] in [place]. He last had chemo on Tuesday, methotrexate and archon(?). Today he developed shaking chills at home. He checked his temp and it was 101.2. He called the [facility] and they told him to come to the ER. Has has also had some nausea and midepigastric pain the past 2 days. No vomiting or diarrhea. He feels generalized fatigue. No cough/congestion/sore throat. No dysuria. No new rashes or wounds. 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 No cellulitic changes around the chemo port. In the ER he has a fever and neutropenia. No clear etiology. He received meropenem. [] Past Medical History Past Medical History (Chronic Problems): Chronic Problems (Last Updated 01/02/19 @ 16:09 by Radha Cox) NHL (non-Hodgkin's lymphoma) (Chronic) Pulmonary embolism (Chronic) Pancytopenia (Chronic) Medical History: Medical History (Last Updated 01/02/19 @ 16:09 by Radha Cox) Anemia D64.9 Allergies No Known Allergies Allergy (Verified 01/02/19 16:38) Home Medications: Ambulatory Orders Medication Instructions Recorded Acyclovir 400 mg PO BID 04/27/19 Allopurinol 300 mg PO DAILY 04/27/19 Loratadine [Claritin] 10 mg PO DAILY 04/27/19 Pantoprazole Sodium [Protonix] 40 mg PO DAILY 04/27/19 Rivaroxaban [Xarelto] 20 mg PO DAILY 04/27/19 Surgical History: Surgical History (Last Updated 01/02/19 @ 15:35 by Radha Cox) No history of previous surgery Surgical History: no surgical history Psychiatric History: No pertinent psych hx Lives: Alone Smoking Status: Never smoker Tobacco Use: Non-smoker Alcohol: None Drugs: None - *Family History Maternal Family History: Family History (Last Reviewed 04/27/19 @ 17:22 by LAURY Hurt) Grandfather Heart disease Father Heart disease Brother Heart disease Sister Breast cancer Sister Myeloma Review of Systems Constitutional: Reports: Chills, Fever, Fatigue. Denies: Weight Change HEENT: Denies: Head Aches, Sinus Congestion, Sinus Drainage Cardiovascular: Denies: Chest Pain, Light Headedness, Palpitations Respiratory: Denies: Cough, Shortness of Breath, Shortness of breath at rest, Sputum production Gastrointestinal: Reports: Abdominal Pain - midepigastric, Nausea. Denies: Diarrhea, Vomiting Genitourinary: Denies: Dysuria Musculoskeletal: Denies: Joint Pain, Joint Tenderness Skin: Denies: Rash, Wounds Neurological: Denies: Numbness, Tingling, Focal weakness Psychiatric: Denies: Anxiety, Depression, Homicidal Ideations, Suicidal Ideations Hematologic/ Lymphatic: Denies: Easy Bruising, Easy Bleeding VTE Information - Inpt Only VTE Present on Admission: No VTE Mechan Device Prophylaxis: None VTE Pharm Prophylaxis ordered?: Yes Patient Problems: Active and Suspected Problems (Last Updated 01/02/19 @ 16:09 by Radha Cox) Neutropenic fever (Acute) - Physical Exam Vitals/I&O's: Vital Signs Temp Pulse Resp BP Pulse Ox 98.7 F 104 H 16 111/74 95 04/27/19 16:00 04/27/19 16:00 04/27/19 16:00 04/27/19 16:00 04/27/19 16:00 Oxygen Delivery Method Room Air Weight: 205 lb Body Mass Index (BMI) 29.4 Intake and Output for Last 24 Hours 04/25/19 04/26/19 04/27/19 23:59 23:59 23:59 Intake Total 1000 / 1000 Balance 1000 / 1000 General: Alert, Oriented x3, Cooperative HEENT: Atraumatic, PERRLA, EOMI, Normocephalic Neck: Supple, No JVD, Negative Carotid Bruits Lungs: Clear to auscultation, Normal air movement Cardiovascular: Regular rate, No murmurs Abdomen: Bowel Sounds Present, Soft, Non Tender Extremities: No edema, Capillary Refill Less than 3 Seconds Skin: No rashes, No breakdown, - - no cellulitic changes at the chemo port Musculoskeletal: No Tenderness to Palpation of Joints or Extremities Neurological: Cranial nerves II-XII grossly intact Psych/Mental Status: Normal Affect, Appropriate, Alert and oriented to time, place, person, mood and affect Microbiology Past 72 Hours 04/27/19 15:00 Mucosa - Nose Influenza Types A,B Direct FA (STUART) - Final Laboratory Results 04/27/19 14:38: WBC 0.5 L*, RBC 3.70 L, Hgb 10.3 L, Hct 32.1 L, MCV 86.8, MCH 27.8, MCHC 32.1, RDW Std Deviation 52.8 H, RDW Coeff of Aishwarya 16.6 H, Plt Count 92 L, MPV 8.7, Immature Gran % (Auto) 2.000 H, Neut % (Auto) 9.7 L, Lymph % (Auto) 49.0 H, [place] % (Auto) 21.6 H, Eos % (Auto) 15.7 H, Baso % (Auto) 2.0 H, Absolute Neuts (auto) 0.1 L, Absolute Lymphs (auto) 0.25 L, Nucleated RBC % 0, Differential Comment SEE COMMENTS, Diff Path Review May mehran, Platelet Estimate MOD DEC, RBC Morphology N CHROM, Anisocytosis RARE 04/27/19 14:38: PT 22.6 H, INR 2.0, APTT 38.3 H 04/27/19 14:38: Sodium 141, Potassium 3.9, Chloride 106, Carbon Dioxide 30.0, Anion Gap 5, BUN 14, Creatinine 0.75, Estim Creat Clear Calc 120.31, Est GFR (MDRD) Af Amer 141, Est GFR (MDRD) Non-Af 117, BUN/Creatinine Ratio 18.7, Glucose 98, Calcium 9.0, Phosphorus 3.0, Magnesium 1.8, Total Bilirubin 0.40, AST 13 L, ALT 46, Alkaline Phosphatase 75, Total Protein 6.6, Albumin 3.5, Globulin 3.1, Albumin/Globulin Ratio 1.1 04/27/19 14:38: Lactic Acid 1.6 04/27/19 15:40: Urine Color Yellow, Urine Clarity Clear, Urine pH 7.0, Ur Specific Gladstone 1.010, Urine Protein Negative, Urine Glucose (UA) Normal, Urine Ketones Negative, Urine Occult Blood 250 H, Urine Nitrite Negative, Urine Bilirubin Negative, Urine Urobilinogen Normal, Ur Leukocyte Esterase Negative, Urine RBC 0-5 SEEN, Urine WBC 0 SEEN, Ur Squamous Epith Cells 0 SEEN, Urine Bacteria 0 SEEN, Urine Mucus 4+ Assessment/Plan All Active Problems (Last Updated 01/02/19 @ 16:09 by Radha Cox) Lymphadenopathy (Acute) Bone lesion (Acute) Gammopathy (Acute) Anemia (Acute) Neutropenic fever (Acute) 1. Neutropenic fever - 2/2 chemotherapy for NHL, last round Tuesday. Start meropenem/granix. Check Blood cultures. UA and CXR negative. Port looks uninfected. Some nausea but no specific source of infection. Temp 101.8 in ER with tachycardia. Lactate negative. 2. NHL - pt of Dr. Gross/Jerrica at the [facility] in [place]. Initially seen here by Dr. Herman. 3. Hx PE - continue xarelto. 4. GERD - PPI. 5. Pancytopenia - 2/2 chemo. Complicating recovery. Will trend. DVT ppx: xarelto DC planning: pt otherwise independent and active in the community, home with family at [place]. This patient was seen by Brown Conteh PA-C under the supervision of Dr. Andrea.
[2019-04-27] MEDS: proMETHazine 25 MG/ML Syringe 6.25 MG IV (18:27)
--- NOTE | 2019-04-27 20:01 | PN_ITS ---
Progress Note Nurse reports that Granix was given 04/25/2019 by ; and was expressing concern about patient receiving Granix again tonight. called the [facility] in [place]. talked to patient's nurse at the hospital and requested that Granix be held at least for tonight. Will hold Granix for tonight. Follow up ordered CBC and give Granix when appropriate. STROKE Vital Signs/Narrative: Vital Signs Temp Pulse Resp BP Pulse Ox 04/27/19 18:56 121 H 04/27/19 18:39 98.4 F 68 18 134/90 H 97 04/27/19 17:00 98.3 F 111 H 16 119/83 H 97
[2019-04-27] MEDS: Acyclovir 200 MG Capsule 400 MG PO (21:33)
[2019-04-27] MEDS: Polyethylene Glycol 3350 17 GM PACKET PO (21:34)
[2019-04-27] MEDS: Acetaminophen 325 MG Tablet 650 MG PO (21:37)
[2019-04-27] MEDS: 0.9% Saline Lock 10 ML Syringe IV (21:49)
[2019-04-27] MEDS: Mag Hydrox/Al Hydrox/Simeth 30 ML UDC PO (23:06)
[2019-04-28] VITALS (10 sets, daily range): BP systolic 99–126; BP diastolic 66–84; PULSE 92–112; RESP 13–16; TEMP 36.8–38.1; O2SAT 96–100
[2019-04-28 00:37] LABS: M R Staph aureus DNA By PCR Negative (Negative); Probe Check PASS; Specimen Processing Control PASS
[2019-04-28] MEDS: oxyCODONE 5 MG Tablet PO ×3 (01:54→20:06)
[2019-04-28] MEDS: Mag Hydrox/Al Hydrox/Simeth 30 ML UDC PO ×3 (03:31→15:17)
[2019-04-28] MEDS: Acetaminophen 325 MG Tablet 650 MG PO ×3 (03:40→16:52)
[2019-04-28] MEDS: 0.9% Saline Lock 10 ML Syringe IV ×3 (04:56→16:38)
[2019-04-28 05:38] LABS: Absolute Lymphocyte Count 0.19 X10^3/uL (0.83-4.51); Basophil# 0.01 X10^3/uL; Basophil% 2.1 % (0-1); Eosinophil# 0.09 X10^3/uL; Eosinophils% 18.8 % (0-5); Hematocrit 30.6 % (40-54); Hemoglobin 9.7 g/dL (13.0-16.5); Lymphocyte # 0.19 X10^3/ul (4.0); Lymphocyte % 39.6 % (19-41); Mean Corp Hgb Conc 31.7 g/dL (32-36); Mean Corpuscular Hgb 27.6 pg (27.0-32.0); Mean Corpuscular Volume 87.2 fL (80-94); Mean Platelet Vol. 10.2 fl (6.2-12.0); Monocyte# 0.15 X10^3/uL; Monocyte% 31.3 % (0-10); NRBC Flagged by Analyzer 0 % (0-5); Neutrophil # 0.04 X10^3/uL (2.7-7.7); Neutrophil % 8.2 % (47-70); POSITIVE COUNT YES; POSITIVE DIFFERENTIAL YES; POSITIVE MORPHOLOGY YES; Platelet Count 75 K/mm3 (150-450); RBC Distribution Width CV 16.5 % (11.6-14.6); Red Blood Count 3.51 M/mm3 (4.6-6.2)
[2019-04-28 05:47] LABS: Anion Gap 3 (5-15); BUN 9 mg/dL (7-18); Calcium,Total 8.6 mg/dL (8.5-10.1); Chloride 104 mmol/L (98-107); EST Glomerular Filtration Rate 150 mL/min (>60); Est Glom Filt Rate - Afr Amer 182 mL/min (>60); Estimated Creatinine Clearance 150.39 ml/min; Glucose 103 mg/dL (74-106); Potassium 3.9 mmol/L (3.5-5.1); Sodium Level 138 mmol/L (136-145)
[2019-04-28 06:06] LABS: Differential Indicated SCAN CRITERIA MET
[2019-04-28 06:08] LABS: White Blood Count 0.5 K/mm3 (4.4-11.0)
[2019-04-28 07:09] LABS: Differential Comment SCANNED
[2019-04-28] MEDS: Pantoprazole Sodium 40 MG Tablet PO (09:39)
[2019-04-28] MEDS: Allopurinol 300 MG Tablet PO (09:39)
[2019-04-28] MEDS: Acyclovir 200 MG Capsule 400 MG PO ×2 (09:39→21:33)
[2019-04-28] MEDS: Polyethylene Glycol 3350 17 GM PACKET PO (09:39)
[2019-04-28] MEDS: Loratadine 10 MG Tablet PO (09:39)
--- NOTE | 2019-04-28 10:27 | CASEMGMT ---
RN CM Assessment Introduced role of RN CM to patient, patient and daughter at bedside.? Patient is alert, oriented and able?to participate in RN CM Assessment. ?Care providers, pharmacy, and demographics verified. Presentation: Fever, Shaking chills. 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 LNOK: Ingrid Lee LW/HPOA: None, declines any offered information or services to complete on this admission. Made aware can return as an outpatient to complete with dept. Living Arrangements:? Lives with /family in a 2SH, Bedroom on [address]. No steps to enter the home. ADL?s: Independent with ambulation and ADLs Transportation: Patient drives DME: None HHC: None SNF: None Goal: Home and does not think will have any needs. Denies any issues, questions or concerns with DC planning at this time. Aware CM remains available for any emerging needs. INGRIS Hansen DC PLAN: Home with no needs anticipated. INGRIS Hansen
--- NOTE | 2019-04-28 13:24 | PN_ITS ---
<Brown Conteh - Last Filed: 04/28/19 13:24> Patient Problems: Active and Suspected Problems (Last Updated 01/02/19 @ 16:09 by Radha Cox) Neutropenic fever (Acute) Subjective: Some epigastric pain worse with eating. Better with mylanta. No sweats and fever overnight. no SOB/cough/congestion/sore throat, nausea/vomiting/diarrhea. No new wounds. No irritation at chemo cath. Vitals/I&O's: Vital Signs Temp Pulse Resp BP Pulse Ox 99.0 F 102 H 16 126/84 H 100 04/28/19 11:40 04/28/19 09:10 04/28/19 09:10 04/28/19 09:10 04/28/19 09:10 Oxygen Delivery Method Room Air Weight: 205 lb Body Mass Index (BMI) 29.4 Intake and Output for Last 24 Hours 04/26/19 04/27/19 04/28/19 23:59 23:59 23:59 Intake Total 1600 / 1600 720 / 720 Output Total 1125 / 1125 Balance 1600 / 1600 -405 / -405 General: Alert, Oriented x3, Cooperative HEENT: Atraumatic, PERRLA, EOMI, Normocephalic Neck: Supple, No JVD, Negative Carotid Bruits Lungs: Clear to auscultation, Normal air movement Cardiovascular: Regular rate, No murmurs Abdomen: Bowel Sounds Present, Soft, Non Tender Extremities: No edema, Capillary Refill Less than 3 Seconds Skin: No rashes, No breakdown Musculoskeletal: No Tenderness to Palpation of Joints or Extremities Neurological: Cranial nerves II-XII grossly intact Psych/Mental Status: Normal Affect, Appropriate, Alert and oriented to time, place, person, mood and affect Microbiology Past 72 Hours 04/27/19 15:00 Mucosa - Nose Influenza Types A,B Direct FA (STUART) - Final Laboratory Results 04/27/19 14:38: WBC 0.5 L*, RBC 3.70 L, Hgb 10.3 L, Hct 32.1 L, MCV 86.8, MCH 27.8, MCHC 32.1, RDW Std Deviation 52.8 H, RDW Coeff of Aishwarya 16.6 H, Plt Count 92 L, MPV 8.7, Immature Gran % (Auto) 2.000 H, Neut % (Auto) 9.7 L, Lymph % (Auto) 49.0 H, Day % (Auto) 21.6 H, Eos % (Auto) 15.7 H, Baso % (Auto) 2.0 H, Absolute Neuts (auto) 0.1 L, Absolute Lymphs (auto) 0.25 L, Nucleated RBC % 0, Differential Comment SEE COMMENTS, Diff Path Review May foll, Platelet Estimate MOD DEC, RBC Morphology N CHROM, Anisocytosis RARE 04/27/19 14:38: PT 22.6 H, INR 2.0, APTT 38.3 H 04/27/19 14:38: Sodium 141, Potassium 3.9, Chloride 106, Carbon Dioxide 30.0, Anion Gap 5, BUN 14, Creatinine 0.75, Estim Creat Clear Calc 120.31, Est GFR (MDRD) Af Amer 141, Est GFR (MDRD) Non-Af 117, BUN/Creatinine Ratio 18.7, Glucose 98, Calcium 9.0, Phosphorus 3.0, Magnesium 1.8, Total Bilirubin 0.40, AST 13 L, ALT 46, Alkaline Phosphatase 75, Total Protein 6.6, Albumin 3.5, Globulin 3.1, Albumin/Globulin Ratio 1.1 04/27/19 14:38: Lactic Acid 1.6 04/27/19 15:40: Urine Color Yellow, Urine Clarity Clear, Urine pH 7.0, Ur Specific Mckenna 1.010, Urine Protein Negative, Urine Glucose (UA) Normal, Urine Ketones Negative, Urine Occult Blood 250 H, Urine Nitrite Negative, Urine Bilirubin Negative, Urine Urobilinogen Normal, Ur Leukocyte Esterase Negative, Urine RBC 0-5 SEEN, Urine WBC 0 SEEN, Ur Squamous Epith Cells 0 SEEN, Urine Bacteria 0 SEEN, Urine Mucus 4+ 04/27/19 22:30: MRSA (PCR) Negative 04/28/19 04:52: WBC 0.5 L*, RBC 3.51 L, Hgb 9.7 L, Hct 30.6 L, MCV 87.2, MCH 27.6, MCHC 31.7 L, RDW Std Deviation 52.0 H, RDW Coeff of Aishwarya 16.5 H, Plt Count 75 L, MPV 10.2, Immature Gran % (Auto) 0.000, Neut % (Auto) 8.2 L, Lymph % (Auto) 39.6, Day % (Auto) 31.3 H, Eos % (Auto) 18.8 H, Baso % (Auto) 2.1 H, Absolute Neuts (auto) 0.0 L, Absolute Lymphs (auto) 0.19 L, Nucleated RBC % 0, Differential Comment SCANNED, Diff Path Review September04/28/19 04:52: Sodium 138, Potassium 3.9, Chloride 104, Carbon Dioxide 31.0, Anion Gap 3 L, BUN 9, Creatinine 0.60 L, Estim Creat Clear Calc 150.39, Est GFR (MDRD) Af Amer 182, Est GFR (MDRD) Non-Af 150, BUN/Creatinine Ratio 15.0, Glucose 103, Calcium 8.6 Current Medications Acetaminophen (Tylenol) 650 mg PO Q6H PRN PRN PRN Reason: Pain or Fever Last Admin: 04/28/19 09:45 Dose: 650 mg Documented by: Acyclovir (Zovirax) 400 mg PO BID [facility] Last Admin: 04/28/19 09:39 Dose: 400 mg Documented by: Al Hydroxide/Mg Hydroxide (Mylanta Ii) 30 ml PO Q4H PRN PRN PRN Reason: DYSPEPSIA Last Admin: 04/28/19 09:45 Dose: 30 ml Documented by: Allopurinol (Zyloprim) 300 mg PO DAILY [facility] Last Admin: 04/28/19 09:39 Dose: 300 mg Documented by: Heparin Sodium (Beef Lung) () 50 units IV UD PRN PRN Reason: PICC Line Heparin Flush Meropenem 1 gm/ Sodium (Chloride) 120 mls @ 33 mls/hr IV Q8 [facility] Last Infusion: 04/28/19 09:00 Dose: Infused Documented by: Loratadine (Claritin) 10 mg PO DAILY [facility] Last Admin: 04/28/19 09:39 Dose: 10 mg Documented by: Ondansetron HCl (Zofran) 4 mg IV Q6H PRN PRN PRN Reason: Nausea Oxycodone HCl (Oxyir) 5 mg PO Q6H PRN PRN PRN Reason: Pain Score 6-10/10 Last Admin: 04/28/19 11:37 Dose: 5 mg Documented by: Pantoprazole Sodium (Protonix) 40 mg PO DAILY [facility] Last Admin: 04/28/19 09:39 Dose: 40 mg Documented by: Polyethylene Glycol (Miralax) 17 gm PO DAILY [facility] Last Admin: 04/28/19 09:39 Dose: 17 gm Documented by: Promethazine HCl (Phenergan) 6.25 mg IV Q6H PRN PRN PRN Reason: Nausea/Vomiting Last Admin: 04/27/19 18:27 Dose: 6.25 mg Documented by: Rivaroxaban (Xarelto) 20 mg PO DAILY@1700 ALFONZO Sodium Chloride () 10 - 40 ml IV UD PRN PRN Reason: Open End PICC Flush Last Admin: 04/28/19 04:56 Dose: 20 ml Documented by: Sodium Chloride (0.9% Nacl (Sterile) Posiflush) 10 - 40 ml IV UD PRN PRN Reason: Port access or dressing change STROKE Vital Signs/Narrative: Vital Signs Temp 04/28/19 11:40 99.0 F Medical Necessity - Tobacco Use Smoking Status: Never smoker Tobacco Use: Non-smoker Assessment/Plan All Active Problems (Last Updated 01/02/19 @ 16:09 by Radha Cox) Neutropenic fever (Acute) 1. Neutropenic fever - 2/2 chemotherapy for NHL, last round Tuesday. No clear source. Continue meropenem. No need for granix per his oncologist (called today) as he received neulasta recently. Keep until fevers resolve and ANC recover. 2. NHL - pt of Dr. Gross/[place] at the [facility] in [place]. Initially seen here by Dr. Herman. 3. Hx PE - continue xarelto. 4. GERD - PPI. 5. Pancytopenia - 2/2 chemo. Complicating recovery. Will trend. DVT ppx: xarelto DC planning: pt otherwise independent and active in the community, home with family at [place]. This patient was seen by Brown Conteh PA-C under the supervision of Dr. Heller <Willi Heller E - Last Filed: 04/28/19 13:37> Vitals/I&O's: Vital Signs Temp Pulse Resp BP Pulse Ox 99.0 F 102 H 16 126/84 H 100 04/28/19 11:40 04/28/19 09:10 04/28/19 09:10 04/28/19 09:10 04/28/19 09:10 Oxygen Delivery Method Room Air Weight: 205 lb Body Mass Index (BMI) 29.4 Intake and Output for Last 24 Hours 04/26/19 04/27/19 04/28/19 23:59 23:59 23:59 Intake Total 1599 / 1599 720 / 720 Output Total 1125 / 1125 Balance 1599 -405 / -405 Microbiology Past 72 Hours 04/27/19 15:00 Mucosa - Nose Influenza Types A,B Direct FA (STUART) - Final Laboratory Results 04/27/19 14:38: WBC 0.5 L*, RBC 3.70 L, Hgb 10.3 L, Hct 32.1 L, MCV 86.8, MCH 27.8, MCHC 32.1, RDW Std Deviation 52.8 H, RDW Coeff of Aishwarya 16.6 H, Plt Count 92 L, MPV 8.7, Immature Gran % (Auto) 2.000 H, Neut % (Auto) 9.7 L, Lymph % (Auto) 49.0 H, Day % (Auto) 21.6 H, Eos % (Auto) 15.7 H, Baso % (Auto) 2.0 H, Absolute Neuts (auto) 0.1 L, Absolute Lymphs (auto) 0.25 L, Nucleated RBC % 0, Differential Comment SEE COMMENTS, Diff Path Review May foll, Platelet Estimate MOD DEC, RBC Morphology N CHROM, Anisocytosis RARE 04/27/19 14:38: PT 22.6 H, INR 2.0, APTT 38.3 H 04/27/19 14:38: Sodium 141, Potassium 3.9, Chloride 106, Carbon Dioxide 30.0, Anion Gap 5, BUN 14, Creatinine 0.75, Estim Creat Clear Calc 120.31, Est GFR (MDRD) Af Amer 141, Est GFR (MDRD) Non-Af 117, BUN/Creatinine Ratio 18.7, Glucose 98, Calcium 9.0, Phosphorus 3.0, Magnesium 1.8, Total Bilirubin 0.40, AST 13 L, ALT 46, Alkaline Phosphatase 75, Total Protein 6.6, Albumin 3.5, Globulin 3.1, Albumin/Globulin Ratio 1.1 04/27/19 14:38: Lactic Acid 1.6 04/27/19 15:40: Urine Color Yellow, Urine Clarity Clear, Urine pH 7.0, Ur Specific Mckenna 1.010, Urine Protein Negative, Urine Glucose (UA) Normal, Urine Ketones Negative, Urine Occult Blood 250 H, Urine Nitrite Negative, Urine Bilirubin Negative, Urine Urobilinogen Normal, Ur Leukocyte Esterase Negative, Urine RBC 0-5 SEEN, Urine WBC 0 SEEN, Ur Squamous Epith Cells 0 SEEN, Urine Bacteria 0 SEEN, Urine Mucus 4+ 04/27/19 22:30: MRSA (PCR) Negative 04/28/19 04:52: WBC 0.5 L*, RBC 3.51 L, Hgb 9.7 L, Hct 30.6 L, MCV 87.2, MCH 27.6, MCHC 31.7 L, RDW Std Deviation 52.0 H, RDW Coeff of Aishwarya 16.5 H, Plt Count 75 L, MPV 10.2, Immature Gran % (Auto) 0.000, Neut % (Auto) 8.2 L, Lymph % (Auto) 39.6, Day % (Auto) 31.3 H, Eos % (Auto) 18.8 H, Baso % (Auto) 2.1 H, Absolute Neuts (auto) 0.0 L, Absolute Lymphs (auto) 0.19 L, Nucleated RBC % 0, Differential Comment SCANNED, Diff Path Review September04/28/19 04:52: Sodium 138, Potassium 3.9, Chloride 104, Carbon Dioxide 31.0, Anion Gap 3 L, BUN 9, Creatinine 0.60 L, Estim Creat Clear Calc 150.39, Est GFR (MDRD) Af Amer 182, Est GFR (MDRD) Non-Af 150, BUN/Creatinine Ratio 15.0, Glucose 103, Calcium 8.6 Current Medications Acetaminophen (Tylenol) 650 mg PO Q6H PRN PRN PRN Reason: Pain or Fever Last Admin: 04/28/19 09:45 Dose: 650 mg Documented by: Acyclovir (Zovirax) 400 mg PO BID [facility] Last Admin: 04/28/19 09:39 Dose: 400 mg Documented by: Al Hydroxide/Mg Hydroxide (Mylanta Ii) 30 ml PO Q4H PRN PRN PRN Reason: DYSPEPSIA Last Admin: 04/28/19 09:45 Dose: 30 ml Documented by: Allopurinol (Zyloprim) 300 mg PO DAILY [facility] Last Admin: 04/28/19 09:39 Dose: 300 mg Documented by: Heparin Sodium (Beef Lung) () 50 units IV UD PRN PRN Reason: PICC Line Heparin Flush Meropenem 1 gm/ Sodium (Chloride) 120 mls @ 33 mls/hr IV Q8 [facility] Last Infusion: 04/28/19 09:00 Dose: Infused Documented by: Loratadine (Claritin) 10 mg PO DAILY [facility] Last Admin: 04/28/19 09:39 Dose: 10 mg Documented by: Ondansetron HCl (Zofran) 4 mg IV Q6H PRN PRN PRN Reason: Nausea Oxycodone HCl (Oxyir) 5 mg PO Q6H PRN PRN PRN Reason: Pain Score 6-10/10 Last Admin: 04/28/19 11:37 Dose: 5 mg Documented by: Pantoprazole Sodium (Protonix) 40 mg PO DAILY [facility] Last Admin: 04/28/19 09:39 Dose: 40 mg Documented by: Polyethylene Glycol (Miralax) 17 gm PO DAILY [facility] Last Admin: 04/28/19 09:39 Dose: 17 gm Documented by: Promethazine HCl (Phenergan) 6.25 mg IV Q6H PRN PRN PRN Reason: Nausea/Vomiting Last Admin: 04/27/19 18:27 Dose: 6.25 mg Documented by: Rivaroxaban (Xarelto) 20 mg PO DAILY@1700 [facility] Sodium Chloride () 10 - 40 ml IV UD PRN PRN Reason: Open End PICC Flush Last Admin: 04/28/19 04:56 Dose: 20 ml Documented by: Sodium Chloride (0.9% Nacl (Sterile) Posiflush) 10 - 40 ml IV UD PRN PRN Reason: Port access or dressing change STROKE Vital Signs/Narrative: Vital Signs [facility] 04/28/19 11:40 99.0 F Assessment/Plan Hospitalist note: I am seeing this patient in conjunction with Brown Conteh. I independently seen and examined the patient. Progress note above, laboratory data and imaging studies reviewed and I concur with the above work-up and treatment plan. Epig astric pain improved. Denies fever or chills, no diaphoresis. Denied cough or sputum production. Denied abdominal pain, nausea vomiting or diarrhea. Reported constipation. He has been afebrile this morning, other vital signs are stable. - Physical Exam General: Alert, Oriented x3, Cooperative, No apparent distress. HEENT: Atraumatic, PERRLA, EOMI. Neck: Supple, No JVD, Negative Carotid Bruits, Trachea Midline, Thyroid Normal. Lungs: Clear to auscultation, Normal air movement, No rhonchi, No wheeze, No rales. Cardiovascular: Regular rate, Regular Rhythm, Normal S1, Normal S2, PMI Normal. Abdomen: Bowel Sounds Present, Soft, Non Tender, Non-Distended, No Hepato- splenomegaly. Extremities: No clubbing, No cyanosis, No edema Skin: No rashes, No breakdown Neurological: Neuro grossly intact Vital Signs are stable. Assessment and plan: #1 leukopenia/neutropenic fever: Secondary to chemotherapy. Patient received Neulasta injection this past Tuesday. Today, patient still leukopenic and neutropenic, absolute neutrophil count is 0. This morning, has been afebrile. He is on IV meropenem. Blood and urine cultures are pending. Nasal swab for influenza a and B were negative. We contacted his oncologist who recommended no need for Granix injections. Repeat CBC tomorrow morning. #2 anemia/chronic thrombocytopenia: Again secondary to chemotherapy. Hemoglobin today is 9.7 g/dL. Platelet count is 75,000. INR is 2. Patient has been on Xarelto for history of PE. No evidence of active bleeding. Plan to repeat CBC tomorrow morning. #3 other chronic medical problems: Stable, continue current medications as above. This note was generated with [employer] dictation software. It may contain incorrect words, spelling, and punctuation that were not noted in checking the note before signing. Code Visit Inpatient E&M: 20858 Subs Hosp L2
[2019-04-28] MEDS: proMETHazine 25 MG/ML Syringe 6.25 MG IV (16:37)
[2019-04-28] MEDS: Rivaroxaban 20 MG Tablet PO (17:07)
[2019-04-29 03:35] VITALS: BP 110/70; PULSE 106; RESP 15; TEMP 37.6; O2SAT 97
[2019-04-29] MEDS: 0.9% Saline Lock 10 ML Syringe IV ×2 (05:12→20:58)
[2019-04-29 06:22] LABS: Absolute Lymphocyte Count 0.26 X10^3/uL (0.83-4.51); Absolute Neutrophil Count 0.1 X10^3/uL (2.0-7.7); Basophil# 0.02 X10^3/uL; Basophil% 2.3 % (0-1); Eosinophil# 0.04 X10^3/uL; Eosinophils% 4.5 % (0-5); Hematocrit 32.1 % (40-54); Hemoglobin 10.3 g/dL (13.0-16.5); Lymphocyte # 0.26 X10^3/ul (4.0); Lymphocyte % 29.5 % (19-41); Mean Corp Hgb Conc 32.1 g/dL (32-36); Mean Corpuscular Hgb 27.5 pg (27.0-32.0); Mean Corpuscular Volume 85.8 fL (80-94); Mean Platelet Vol. 10.2 fl (6.2-12.0); Monocyte# 0.42 X10^3/uL; Monocyte% 47.7 % (0-10); NRBC Flagged by Analyzer 0 % (0-5); Neutrophil # 0.14 X10^3/uL (2.7-7.7); POSITIVE COUNT YES; POSITIVE DIFFERENTIAL YES; POSITIVE MORPHOLOGY YES; Platelet Count 62 K/mm3 (150-450); RBC Distribution Width CV 16.2 % (11.6-14.6); RBC Distribution Width SD 51.5 fl (35.1-43.9); Red Blood Count 3.74 M/mm3 (4.6-6.2)
[2019-04-29 06:50] LABS: Differential Indicated SCAN CRITERIA MET; White Blood Count 0.9 K/mm3 (4.4-11.0)
[2019-04-29 09:30] VITALS: BP 111/95; PULSE 104; RESP 16; TEMP 37.1; O2SAT 100
[2019-04-29] MEDS: Loratadine 10 MG Tablet PO (09:43)
[2019-04-29] MEDS: Acyclovir 200 MG Capsule 400 MG PO ×2 (09:44→21:11)
[2019-04-29] MEDS: Pantoprazole Sodium 40 MG Tablet PO (09:44)
[2019-04-29] MEDS: Allopurinol 300 MG Tablet PO (09:44)
--- NOTE | 2019-04-29 11:35 | PCM.PN.HOSP ---
<Brown Conteh - Last Filed: 04/29/19 11:35> Patient Problems: Active and Suspected Problems (Last Updated 01/02/19 @ 16:09 by Radha Cox) Neutropenic fever (Acute) Reason for Visit: fever Subjective: No further sweats/chills. Abd pain resolved. Pt constipation resolved. No cough/SOB/sore throat, no N/V/D, no new wounds. Pt reports overall feeling better. Vitals/I&O's: Vital Signs Temp Pulse Resp BP Pulse Ox 98.8 F 104 H 16 111/95 H 100 04/29/19 09:30 04/29/19 09:30 04/29/19 09:30 04/29/19 09:30 04/29/19 09:30 Oxygen Delivery Method Room Air Weight: 204 lb 12.951 oz Body Mass Index (BMI) 29.4 Intake and Output for Last 24 Hours 04/27/19 04/28/19 04/29/19 23:59 23:59 23:59 Intake Total 1600 / 1600 1620 / 1620 300 / 300 Output Total 1725 / 1725 320 / 320 Balance 1600 / 1600 -105 / -105 -20 / -20 General: Alert, Oriented x3, Cooperative HEENT: Atraumatic, PERRLA, EOMI, Normocephalic Neck: Supple, No JVD, Negative Carotid Bruits Lungs: Clear to auscultation, Normal air movement Cardiovascular: Regular rate, No murmurs Abdomen: Bowel Sounds Present, Soft, Non Tender Extremities: No edema, Capillary Refill Less than 3 Seconds Skin: No rashes, No breakdown Musculoskeletal: No Tenderness to Palpation of Joints or Extremities Neurological: Cranial nerves II-XII grossly intact Psych/Mental Status: Normal Affect, Appropriate, Alert and oriented to time, place, person, mood and affect Microbiology Past 72 Hours 04/27/19 Unknown Blood Culture (Wb) #2 - Port Blood Culture - Preliminary No growth in 48 hours. 04/27/19 15:40 Urine, Clean Catch Urine Culture - Preliminary Culture exhibits no growth. 04/27/19 15:00 Mucosa - Nose Influenza Types A,B Direct FA (STUART) - Final Laboratory Results 04/29/19 05:13: WBC 0.9 L*, RBC 3.74 L, Hgb 10.3 L, Hct 32.1 L, MCV 85.8, MCH 27.5, MCHC 32.1, RDW Std Deviation 51.5 H, RDW Coeff of Aishwarya 16.2 H, Plt Count 62 L, MPV 10.2, Immature Gran % (Auto) 0.000, Neut % (Auto) 16.0 L, Lymph % (Auto) 29.5, Buchanan % (Auto) 47.7 H, Eos % (Auto) 4.5, Baso % (Auto) 2.3 H, Absolute Neuts (auto) 0.1 L, Absolute Lymphs (auto) 0.26 L, Nucleated RBC % 0, Diff Path Review May foll Current Medications Acetaminophen (Tylenol) 650 mg PO Q6H PRN PRN PRN Reason: Pain or Fever Last Admin: 04/28/19 16:52 Dose: 650 mg Documented by: Acyclovir (Zovirax) 400 mg PO BID [facility] Last Admin: 04/29/19 09:44 Dose: 400 mg Documented by: Al Hydroxide/Mg Hydroxide (Mylanta Ii) 30 ml PO Q4H PRN PRN PRN Reason: DYSPEPSIA Last Admin: 04/28/19 09:45 Dose: 30 ml Documented by: Allopurinol (Zyloprim) 300 mg PO DAILY [facility] Last Admin: 04/29/19 09:44 Dose: 300 mg Documented by: Heparin Sodium (Beef Lung) () 50 units IV UD PRN PRN Reason: PICC Line Heparin Flush Meropenem 1 gm/ Sodium (Chloride) 120 mls @ 33 mls/hr IV Q8 [facility] Last Infusion: 04/29/19 09:00 Dose: Infused Documented by: Sodium Chloride () 250 mls @ 15 mls/hr IV .[id number] PRN PRN Reason: Saline Flush Last Infusion: 04/29/19 05:10 Dose: 0 mls/hr Documented by: Loratadine (Claritin) 10 mg PO DAILY [facility] Last Admin: 04/29/19 09:43 Dose: 10 mg Documented by: Ondansetron HCl (Zofran) 4 mg IV Q6H PRN PRN PRN Reason: Nausea Oxycodone HCl (Oxyir) 5 mg PO Q6H PRN PRN PRN Reason: Pain Score 6-10/10 Last Admin: 12/14/19 20:06 Dose: 5 mg Documented by: Pantoprazole Sodium (Protonix) 40 mg PO DAILY [facility] Last Admin: 04/29/19 09:44 Dose: 40 mg Documented by: Polyethylene Glycol (Miralax) 17 gm PO DAILY [facility] Last Admin: 04/29/19 09:41 Dose: Not Given Documented by: Promethazine HCl (Phenergan) 6.25 mg IV Q6H PRN PRN PRN Reason: Nausea/Vomiting Last Admin: 04/28/19 16:37 Dose: 6.25 mg Documented by: Rivaroxaban (Xarelto) 20 mg PO DAILY@1700 [facility] Last Admin: 04/28/19 17:07 Dose: 20 mg Documented by: Sodium Chloride () 10 - 40 ml IV UD PRN PRN Reason: Open End PICC Flush Last Admin: 04/29/19 05:12 Dose: 30 ml Documented by: Sodium Chloride (0.9% Nacl (Sterile) Posiflush) 10 - 40 ml IV UD PRN PRN Reason: Port access or dressing change STROKE Vital Signs/Narrative: Vital Signs Temp Pulse Resp BP Pulse Ox 04/29/19 09:30 98.8 F 104 H 16 111/95 H 100 Medical Necessity - Tobacco Use Smoking Status: Never smoker Tobacco Use: Non-smoker Assessment/Plan All Active Problems (Last Updated 01/02/19 @ 16:09 by Radha Cox) Neutropenic fever (Acute) 1. Neutropenic fever - 2/2 chemotherapy for NHL, last round Tuesday. No clear source. Continue meropenem. No need for granix per his oncologist (called today) as he received neulasta recently. -ANC 0.1 -Last fever 100.0 @ 1422 yesterday -still mildly tachy 2. NHL - pt of Dr. Gross/Jerrica at the [facility] in [place]. Initially seen here by Dr. Herman. 3. Hx PE - continue xarelto. 4. GERD - PPI. Abd discomfort resolved. 5. Pancytopenia - 2/2 chemo. Complicating recovery. Will trend. DVT ppx: xarelto DC planning: pt otherwise independent and active in the community, home with family at [place]. This patient was seen by Brown Conteh PA-C under the supervision of Dr. Heller <Ashelfah,Ghasem E - Last Filed: 04/29/19 12:29> Vitals/I&O's: Vital Signs Temp Pulse Resp BP Pulse Ox 98.8 F 104 H 16 111/95 H 100 04/29/19 09:30 04/29/19 09:30 04/29/19 09:30 04/29/19 09:30 04/29/19 09:30 Oxygen Delivery Method Room Air Weight: 204 lb 12.951 oz Body Mass Index (BMI) 29.4 Intake and Output for Last 24 Hours 04/27/19 04/28/19 04/29/19 23:59 23:59 23:59 Intake Total 1600 / 1600 1620 / 1620 540 / 540 Output Total 1725 / 1725 620 / 620 Balance 1600 / 1600 -105 / -105 -80 / -80 Microbiology Past 72 Hours 04/27/19 Unknown Blood Culture (Wb) #2 - Port Blood Culture - Preliminary No growth in 48 hours. 04/27/19 15:40 Urine, Clean Catch Urine Culture - Preliminary Culture exhibits no growth. 04/27/19 15:00 Mucosa - Nose Influenza Types A,B Direct FA ([facility]) - Final Laboratory Results 04/29/19 05:13: WBC 0.9 L*, RBC 3.74 L, Hgb 10.3 L, Hct 32.1 L, MCV 85.8, MCH 27.5, MCHC 32.1, RDW Std Deviation 51.5 H, RDW Coeff of Aishwarya 16.2 H, Plt Count 62 L, MPV 10.2, Immature Gran % (Auto) 0.000, Neut % (Auto) 16.0 L, Lymph % (Auto) 29.5, Buchanan % (Auto) 47.7 H, Eos % (Auto) 4.5, Baso % (Auto) 2.3 H, Absolute Neuts (auto) 0.1 L, Absolute Lymphs (auto) 0.26 L, Nucleated RBC % 0, Diff Path Review May Current Medications Acetaminophen (Tylenol) 650 mg PO Q6H PRN PRN PRN Reason: Pain or Fever Last Admin: 04/28/19 16:52 Dose: 650 mg Documented by: Acyclovir (Zovirax) 400 mg PO BID [facility] Last Admin: 04/29/19 09:44 Dose: 400 mg Documented by: Al Hydroxide/Mg Hydroxide (Mylanta Ii) 30 ml PO Q4H PRN PRN PRN Reason: DYSPEPSIA Last Admin: 04/28/19 09:45 Dose: 30 ml Documented by: Allopurinol (Zyloprim) 300 mg PO DAILY [facility] Last Admin: 04/29/19 09:44 Dose: 300 mg Documented by: Heparin Sodium (Beef Lung) () 50 units IV UD PRN PRN Reason: PICC Line Heparin Flush Meropenem 1 gm/ Sodium (Chloride) 120 mls @ 33 mls/hr IV Q8 [facility] Last Infusion: 04/29/19 09:00 Dose: Infused Documented by: Sodium Chloride () 250 mls @ 15 mls/hr IV .[id number] PRN PRN Reason: Saline Flush Last Infusion: 04/29/19 05:10 Dose: 0 mls/hr Documented by: Loratadine (Claritin) 10 mg PO DAILY [facility] Last Admin: 04/29/19 09:43 Dose: 10 mg Documented by: Ondansetron HCl (Zofran) 4 mg IV Q6H PRN PRN PRN Reason: Nausea Oxycodone HCl (Oxyir) 5 mg PO Q6H PRN PRN PRN Reason: Pain Score 6-10/10 Last Admin: 04/28/19 20:06 Dose: 5 mg Documented by: Pantoprazole Sodium (Protonix) 40 mg PO DAILY [facility] Last Admin: 04/29/19 09:44 Dose: 40 mg Documented by: Polyethylene Glycol (Miralax) 17 gm PO DAILY [facility] Last Admin: 04/29/19 09:41 Dose: Not Given Documented by: Promethazine HCl (Phenergan) 6.25 mg IV Q6H PRN PRN PRN Reason: Nausea/Vomiting Last Admin: 04/28/19 16:37 Dose: 6.25 mg Documented by: Rivaroxaban (Xarelto) 20 mg PO DAILY@1700 [facility] Last Admin: 04/28/19 17:07 Dose: 20 mg Documented by: Sodium Chloride () 10 - 40 ml IV UD PRN PRN Reason: Open End PICC Flush Last Admin: 04/29/19 05:12 Dose: 30 ml Documented by: Sodium Chloride (0.9% Nacl (Sterile) Posiflush) 10 - 40 ml IV UD PRN PRN Reason: Port access or dressing change STROKE Vital Signs/Narrative: Vital Signs Temp Pulse Resp BP Pulse Ox 04/29/19 09:30 98.8 F 104 H 16 111/95 H 100 Assessment/Plan Hospitalist note: I am seeing this patient in conjunction with Brown Conteh. I independently seen and examined the patient. Progress note above, laboratory data and reviewed and I concur with the above work-up and treatment plan. Denies any more epigastric pain, no chills, still having spikes of low-grade fever. Denied abdominal pain, nausea or vomiting. All over, is feeling better. Maximum temperature overnight was 99.6, slightly tachycardic, other vital signs are stable. - Physical Exam General: Alert, Oriented x3, Cooperative, No apparent distress. HEENT: Atraumatic, PERRLA, EOMI. Neck: Supple, No JVD, Negative Carotid Bruits, Trachea Midline, Thyroid Normal. Lungs: Clear to auscultation, Normal air movement, No rhonchi, No wheeze, No rales. Cardiovascular: Regular rate, Regular Rhythm, Normal S1, Normal S2, PMI Normal. Abdomen: Bowel Sounds Present, Soft, Non Tender, Non-Distended, No Hepato-splenomegaly. Extremities: No clubbing, No cyanosis, No edema Skin: No rashes, No breakdown Neurological: Neuro grossly intact Vital Signs are stable. Assessment and plan: #1 leukopenia/neutropenic fever: Secondary to chemotherapy for NHL. Patient received Neulasta injection this past Tuesday. WBC as well as absolute neutrophil count minimally improved, patient still having spikes of low-grade fever. He is on IV meropenem. Blood and urine cultures are pending. Nasal swab for influenza a and B were negative. We contacted his oncologist who recommended no need for Granix injections. Plan to monitor, repeat CBC tomorrow morning #2 anemia/chronic thrombocytopenia: Again secondary to chemotherapy. Hemoglobin today is 10.3 g/dL, improved. Platelet count is 62,000, trending down. INR is 2. Patient has been on Xarelto for history of PE. No evidence of active bleeding. Plan to repeat CBC tomorrow morning. #3 other chronic medical problems: Stable, continue current medications as above. This note was generated with Acuper[employer]ation software. It may contain incorrect words, spelling, and punctuation that were not noted in checking the note before signing. Code Visit Inpatient E&M: 58079 Subs Hosp L2
[2019-04-29] MEDS: Acetaminophen 325 MG Tablet 650 MG PO ×2 (13:46→21:11)
[2019-04-29 13:54] VITALS: TEMP 37.1
[2019-04-29 15:48] VITALS: BP 121/86; PULSE 113; RESP 16; TEMP 37.1; O2SAT 100
[2019-04-29] MEDS: Rivaroxaban 20 MG Tablet PO (17:09)
[2019-04-29 20:54] VITALS: BP 110/78; PULSE 100; RESP 14; TEMP 37; O2SAT 100
[2019-04-30 03:03] VITALS: BP 106/71; PULSE 88; RESP 11; TEMP 37; O2SAT 99
[2019-04-30 09:14] VITALS: BP 123/81; PULSE 109; RESP 18; TEMP 36.8; O2SAT 100
[2019-04-30] MEDS: Acyclovir 200 MG Capsule 400 MG PO ×2 (09:22→22:06)
[2019-04-30] MEDS: Allopurinol 300 MG Tablet PO (09:23)
[2019-04-30] MEDS: Loratadine 10 MG Tablet PO (09:23)
[2019-04-30] MEDS: Pantoprazole Sodium 40 MG Tablet PO (09:23)
[2019-04-30 10:34] LABS: Hematocrit 34.4 % (40-54); Mean Corpuscular Hgb 27.6 pg (27.0-32.0); Mean Corpuscular Volume 86.4 fL (80-94); Mean Platelet Vol. 11.3 fl (6.2-12.0); POSITIVE COUNT YES; POSITIVE DIFFERENTIAL YES; POSITIVE MORPHOLOGY YES; Platelet Count 83 K/mm3 (150-450); RBC Distribution Width CV 16.3 % (11.6-14.6); RBC Distribution Width SD 50.6 fl (35.1-43.9); Red Blood Count 3.98 M/mm3 (4.6-6.2); White Blood Count 1.7 K/mm3 (4.4-11.0)
[2019-04-30 10:36] LABS: Differential Indicated MANUAL DIFF
[2019-04-30 11:07] LABS: Basophil 2 % (0-1); Eosinophil 7 % (0-5); Lymphocyte 20 % (19-41); Metamyelocyte 4 % (0-1); Monocyte 20 % (0-10); Myelocyte 4 (0-0); Neutrophil-Segmented 43 % (47-70); Total Cells Counted 100 (MANUAL DIFF)
[2019-04-30 11:08] LABS: Platelet Estimate MOD DEC (ADEQ); Red Cell Morphology NORM C+C NORMAL (NORM C&C)
[2019-04-30 11:09] LABS: Absolute Neutrophil Count 0.7 X10^3/uL (2.0-7.7)
[2019-04-30 11:10] LABS: Absolute Lymphocyte Count 0.34 X10^3/uL (0.83-4.51); Lymphocyte # 0.34 X10^3/ul (4.0)
[2019-04-30] MEDS: 0.9% Saline Lock 10 ML Syringe IV ×2 (11:17→14:25)
--- NOTE | 2019-04-30 12:50 | PN_ITS ---
Patient Problems: Active and Suspected Problems (Last Updated 01/02/19 @ 16:09 by Radha Cox) Neutropenic fever (Acute) Reason for Visit: fever Subjective: No fever since the . Patient does have some increased runny nose and mucus drainage from his sinuses-he states this commonly happens with his chemo.. No cough not, no shortness of breath, no sore throat. No shortness of breath, no chest pain. No nausea, vomiting, or diarrhea. No abdominal pain. Patient states he feels well. Vitals/I&O's: Vital Signs Temp Pulse Resp BP Pulse Ox 98.3 F 109 H 18 123/81 H 100 04/30/19 09:14 04/30/19 09:14 04/30/19 09:14 04/30/19 09:14 04/30/19 09:14 Oxygen Delivery Method Room Air Weight: 204 lb 12.951 oz Body Mass Index (BMI) 29.4 Intake and Output for Last 24 Hours 04/28/19 04/29/19 04/30/19 23:59 23:59 23:59 Intake Total 1620 / 1620 1410 / 1410 400.25 / 400.25 Output Total 1725 / 1725 1220 / 1220 225 / 225 Balance -105 / -105 190 / 190 175.25 / 175.25 General: Alert, Oriented x3, Cooperative HEENT: Atraumatic, PERRLA, EOMI, Normocephalic Neck: Supple, No JVD, Negative Carotid Bruits Lungs: Clear to auscultation, Normal air movement Cardiovascular: Regular rate, No murmurs Abdomen: Bowel Sounds Present, Soft, Non Tender Extremities: No edema, Capillary Refill Less than 3 Seconds Skin: No rashes, No breakdown Musculoskeletal: No Tenderness to Palpation of Joints or Extremities Neurological: Cranial nerves II-XII grossly intact Psych/Mental Status: Normal Affect, Appropriate Microbiology Past 72 Hours 04/27/19 15:40 Urine, Clean Catch Urine Culture - Final Culture exhibits no growth. 04/27/19 14:35 Blood Culture (Wb) - Anticubital Left Blood Culture - Preliminary No growth in 48 hours. 04/27/19 Unknown Blood Culture (Wb) #2 - Port Blood Culture - Preliminary No growth in 48 hours. 04/27/19 15:00 Mucosa - Nose Influenza Types A,B Direct FA ([facility]) - Final Laboratory Results 04/30/19 10:15: WBC 1.7 L, RBC 3.98 L, Hgb 11.0 L, Hct 34.4 L, MCV 86.4, MCH 27.6, MCHC 32.0, RDW Std Deviation 50.6 H, RDW Coeff of Aishwarya 16.3 H, Plt Count 83 L, MPV 11.3, Neut % (Auto) Not Reportable, Absolute Neuts (auto) 0.7 L, Absolute Lymphs (auto) 0.34 L, Total Counted 100, Neutrophils % (Manual) 43 L, Lymphocytes % (Manual) 20, Monocytes % (Manual) 20 H, Eosinophils % (Manual) 7 H , Basophils % (Manual) 2 H, Metamyelocytes % 4 H, Myelocytes % 4 H, Diff Path Review September, Platelet Estimate MOD DEC, RBC Morphology NORM C+C Current Medications Acetaminophen (Tylenol) 650 mg PO Q6H PRN PRN PRN Reason: Pain or Fever Last Admin: 04/29/19 21:11 Dose: 650 mg Documented by: Acyclovir (Zovirax) 400 mg PO BID [facility] Last Admin: 04/30/19 09:22 Dose: 400 mg Documented by: Al Hydroxide/Mg Hydroxide (Mylanta Ii) 30 ml PO Q4H PRN PRN PRN Reason: DYSPEPSIA Last Admin: 04/28/19 09:45 Dose: 30 ml Documented by: Allopurinol (Zyloprim) 300 mg PO DAILY [facility] Last Admin: 04/30/19 09:23 Dose: 300 mg Documented by: Heparin Sodium (Beef Lung) () 50 units IV UD PRN PRN Reason: PICC Line Heparin Flush Meropenem 1 gm/ Sodium (Chloride) 120 mls @ 33 mls/hr IV Q8 [facility] Last Infusion: 04/30/19 09:32 Dose: Infused Documented by: Sodium Chloride () 250 mls @ 15 mls/hr IV .[id number] PRN PRN Reason: Saline Flush Last Infusion: 04/30/19 09:32 Dose: 15 mls/hr Documented by: Loratadine (Claritin) 10 mg PO DAILY [facility] Last Admin: 04/30/19 09:23 Dose: 10 mg Documented by: Ondansetron HCl (Zofran) 4 mg IV Q6H PRN PRN PRN Reason: Nausea Oxycodone HCl (Oxyir) 5 mg PO Q6H PRN PRN PRN Reason: Pain Score 6-10/10 Last Admin: 04/28/19 20:06 Dose: 5 mg Documented by: Pantoprazole Sodium (Protonix) 40 mg PO DAILY [facility] Last Admin: 04/30/19 09:23 Dose: 40 mg Documented by: Polyethylene Glycol (Miralax) 17 gm PO DAILY [facility] Last Admin: 04/30/19 09:24 Dose: Not Given Documented by: Promethazine HCl (Phenergan) 6.25 mg IV Q6H PRN PRN PRN Reason: Nausea/Vomiting Last Admin: 04/28/19 16:37 Dose: 6.25 mg Documented by: Rivaroxaban (Xarelto) 20 mg PO DAILY@1700 [facility] Last Admin: 04/29/19 17:09 Dose: 20 mg Documented by: Sodium Chloride () 10 - 40 ml IV UD PRN PRN Reason: Open End PICC Flush Last Admin: 04/30/19 11:17 Dose: 20 ml Documented by: Sodium Chloride (0.9% Nacl (Sterile) Posiflush) 10 - 40 ml IV UD PRN PRN Reason: Port access or dressing change STROKE Vital Signs/Narrative: Vital Signs Temp Pulse Resp BP Pulse Ox 04/30/19 09:14 98.3 F 109 H 18 123/81 H 100 Medical Necessity - Tobacco Use Smoking Status: Never smoker Tobacco Use: Non-smoker Assessment/Plan All Active Problems (Last Updated 01/02/19 @ 16:09 by Radha Cox) Neutropenic fever (Acute) 1. Neutropenic fever - 2/2 chemotherapy for NHL, last round Tuesday. No clear source. Continue meropenem. No need for granix per his oncologist called) as he received neulasta recently. -ANC 0.7 -Last fever 100.0 04/28/2019 -Ideally patient should have an absolute neutrophil count of 2000 for 2 days. Will maintain in the hospital overnight and recheck in the morning. 2. NHL - pt of Dr. Gross/Jerrica at the [facility] in [place]. Initially seen here by Dr. Herman. 3. Hx PE - continue xarelto. 4. GERD - PPI. Abd discomfort resolved. 5. Pancytopenia - 2/2 chemo. Complicating recovery. Will trend. DVT ppx: xarelto DC planning: pt otherwise independent and active in the community, home with family at [place]. This patient was seen by Brown Conteh PA-C under the supervision of Dr. Medley
[2019-04-30 14:17] LABS: Pathologist Review Reviewed
[2019-04-30 14:19] LABS: Pathologist Review Reviewed
[2019-04-30 14:35] VITALS: BP 112/79; PULSE 101; RESP 18; TEMP 36.9; O2SAT 100
[2019-04-30] MEDS: Rivaroxaban 20 MG Tablet PO (17:22)
[2019-04-30 17:26] VITALS: BP 120/94; PULSE 107; RESP 16; TEMP 36.9; O2SAT 98
[2019-04-30] MEDS: Acetaminophen 325 MG Tablet 650 MG PO (17:30)
[2019-04-30] MEDS: Mag Hydrox/Al Hydrox/Simeth 30 ML UDC PO (17:34)
[2019-04-30 20:34] VITALS: BP 110/90; PULSE 105; RESP 16; TEMP 36.9; O2SAT 99
[2019-05-01 01:42] VITALS: BP 110/86; PULSE 88; RESP 16; TEMP 36.7; O2SAT 100
[2019-05-01] MEDS: 0.9% Saline Lock 10 ML Syringe IV ×2 (05:21→10:25)
[2019-05-01 05:32] LABS: Hematocrit 32.4 % (40-54); Hemoglobin 10.2 g/dL (13.0-16.5); Mean Corp Hgb Conc 31.5 g/dL (32-36); Mean Corpuscular Hgb 27.3 pg (27.0-32.0); Mean Corpuscular Volume 86.9 fL (80-94); POSITIVE COUNT YES; POSITIVE DIFFERENTIAL YES; POSITIVE MORPHOLOGY YES; Platelet Count 95 K/mm3 (150-450); RBC Distribution Width CV 16.5 % (11.6-14.6); RBC Distribution Width SD 52.7 fl (35.1-43.9); Red Blood Count 3.73 M/mm3 (4.6-6.2); White Blood Count 2.2 K/mm3 (4.4-11.0)
[2019-05-01 05:36] LABS: Differential Indicated MANUAL DIFF
[2019-05-01 06:12] VITALS: BP 125/84; PULSE 93; RESP 16; TEMP 36.7; O2SAT 97
[2019-05-01 06:49] LABS: Basophil 1 % (0-1); Eosinophil 1 % (0-5); Lymphocyte 27 % (19-41); Metamyelocyte 3 % (0-1); Monocyte 17 % (0-10); Myelocyte 1 (0-0); Neutrophil-Band 3 % (0-5); Neutrophil-Segmented 47 % (47-70); Nucleated Red Bld Cells,Manual 1 % (0-5); Total Cells Counted 100 (MANUAL DIFF)
[2019-05-01 06:50] LABS: Anisocytosis 1+; Hypochromasia 1+; Platelet Estimate SLT DEC (ADEQ); Polychromasia 1+; Reactive Lymphocyte RARE
[2019-05-01 06:51] LABS: Microcytosis 1+
[2019-05-01 06:52] LABS: Absolute Lymphocyte Count 0.59 X10^3/uL (0.83-4.51); Absolute Neutrophil Count 1.1 X10^3/uL (2.0-7.7)
[2019-05-01 08:15] VITALS: BP 121/81; PULSE 87; RESP 16; TEMP 36.8; O2SAT 98
[2019-05-01] MEDS: Allopurinol 300 MG Tablet PO (08:15)
[2019-05-01] MEDS: Pantoprazole Sodium 40 MG Tablet PO (08:15)
[2019-05-01] MEDS: Loratadine 10 MG Tablet PO (08:15)
[2019-05-01] MEDS: Acyclovir 200 MG Capsule 400 MG PO (08:15)
[2019-05-01 09:25] LABS: Pathologist Review Reviewed
[2019-05-01 09:27] LABS: Pathologist Review Reviewed
--- NOTE | 2019-05-01 10:12 | DCINST_ITS ---
- Discharge Diagnoses Current Active Problems: Current Active and Chronic Problems (Last Updated 01/02/19 @ 16:09 by Radha Cox) NHL (non-Hodgkin's lymphoma) (Chronic) Neutropenic fever (Acute) Pulmonary embolism (Chronic) Pancytopenia (Chronic) You will use the following diet at home:: No restrictions Your food should be the consistency of: Regular Your liquids should be the consistency of: Regular/Thin Discharge Activity: Return to Normal Activity Additional Instructions: Call [facility] oncology about having a CBC with differential checked tomorrow 05/02. Allergies/Adverse Reactions: Allergies No Known Allergies Allergy (Verified 01/02/19 16:38) Medications to take at Discharge Acyclovir 400 mg PO BID 04/27/19 Allopurinol 300 mg PO DAILY 04/27/19 Loratadine [Claritin] 10 mg PO DAILY 04/27/19 Pantoprazole Sodium [Protonix] 40 mg PO DAILY 04/27/19 Rivaroxaban [Xarelto] 20 mg PO DAILY 04/27/19 Acetaminophen [Tylenol Tablet] 650 mg PO Q6H PRN PRN tablet 05/01/19 levoFLOXacin tablet [Levaquin tablet] 500 mg PO DAILY #3 tab 05/01/19 The following prescriptions were given: levoFLOXacin tablet [Levaquin tablet] 500 mg PO DAILY #3 tab Transmission Status: Pending to [id number] Primary Care Physician: Allen Blair MD [Primary Care Provider] - Please follow up with your Primary Care Physician in: 1-2 weeks Test Results: Test results from this visit will be discussed in further detail at your follow- up appointment, if applicable. Please Follow Up With: Allen Blair MD Please Follow Up With: [facility] oncology When: as directed Proposed Discharge Date: 05/01/19
--- NOTE | 2019-05-01 10:39 | PHA.DC.MC ---
Pharmacy Service has performed discharge medication reconciliation and counseling for this patient. Home Medications Acyclovir 400 mg PO BID 04/27/19 Allopurinol 300 mg PO DAILY 04/27/19 Loratadine [Claritin] 10 mg PO DAILY 04/27/19 Pantoprazole Sodium [Protonix] 40 mg PO DAILY 04/27/19 Rivaroxaban [Xarelto] 20 mg PO DAILY 04/27/19 Acetaminophen [Tylenol Tablet] 650 mg PO Q6H PRN PRN tab 05/01/19 levoFLOXacin tablet [Levaquin tablet] 500 mg PO DAILY #3 tab 05/01/19 The patient's discharge medication list was reviewed for discrepancies and discrepancies were resolved. The patient was counseled on the following discharge medications and changes in medications for homegoing were reviewed. 1. LEVOFLOXACIN The Reason for Use, instructions for use, and potential side effects were reviewed for all new medications. The patient's questions regarding all of their medications were answered. The patient was able to verbally demonstrate an understanding of their discharge medications.
[2019-05-01 12:05] LABS: Pathologist Review Reviewed
--- NOTE | 2019-05-01 12:55 | PCM.DC.SUM ---
Discharge Date and Diagnosis Date of Admission: 04/27/19 Date of Discharge: 05/01/19 - Primary Discharge Diagnosis Neutropenic fever NHL Pancytopenia Hx PE - Secondary Discharge Diagnosis Chronic Problems (Last Updated 01/02/19 @ 16:09 by Radha Cox) Lymphadenopathy (Chronic) Bone lesion (Chronic) Gammopathy (Chronic) Anemia (Chronic) NHL (non-Hodgkin's lymphoma) (Chronic) Pulmonary embolism (Chronic) Pancytopenia (Chronic) Hospital Course and Treatment Imaging Results: RAD/Chest PA and Lateral IMPRESSION: No acute abnormality is seen. Operations: None Procedures: None Summary of Care Provided: Hospital course: The patient is a 49 year old M with past medical history of non-Hodgkin's lymphoma currently undergoing chemotherapy at [facility], who had chemotherapy approximately 5 days prior to presentation, who reported to the emergency room for fever. Patient was found to be neutropenic with absolute neutrophil count of 0.1, also with pancytopenia with fever of 101.8. He had no symptoms indicative of a specific infection. He was started on meropenem and admitted to the PCU on telemetry. He had no events on telemetry. He had an unremarkable hospitalization. He had received Neulasta after his chemo so no further Granix was recommended per his oncologist at [facility]. Over the next 4 days his fever spontaneously resolved and his ANC was 1.1k and leukocytes were 2.2k. Patient was transitioned to oral Levaquin. He was discharged home in stable condition. We advised him to have his CBC with differential rechecked tomorrow to ensure that his absolute neutrophil count remains elevated above 1000. He should follow-up with his oncologist as directed, follow-up with his PCP in 1 to 2 weeks. This patient was seen by Brown Conteh PA-C under the supervision of Doctor Medley. [] - Physical Exam Vitals/I&O's: Vital Signs Temp Pulse Resp BP Pulse Ox 98.2 F 87 16 121/81 H 98 05/01/19 08:15 05/01/19 08:15 05/01/19 08:15 05/01/19 08:15 05/01/19 08:15 Oxygen Delivery Method Room Air Weight: 204 lb 12.951 oz Body Mass Index (BMI) 29.4 Intake and Output for Last 24 Hours 12/04/30/19 05/01/19 23:59 23:59 23:59 Intake Total 1410 / 1410 1604.00 / 1754.00 757.5 / 757.5 Output Total 1220 / 1220 575 / 575 350 / 350 Balance 190 / 190 1029.00 / 1179.00 407.5 / 407.5 General: Alert, Oriented x3, Cooperative HEENT: Atraumatic, PERRLA, EOMI, Normocephalic Neck: Supple, No JVD, Negative Carotid Bruits Lungs: Clear to auscultation, Normal air movement Cardiovascular: Regular rate, No murmurs Abdomen: Bowel Sounds Present, Soft, Non Tender Extremities: No edema, Capillary Refill Less than 3 Seconds Skin: No rashes, No breakdown Musculoskeletal: No Tenderness to Palpation of Joints or Extremities Neurological: Cranial nerves II-XII grossly intact Psych/Mental Status: Normal Affect, Appropriate, Alert and oriented to time, place, person, mood and affect Microbiology Past 72 Hours 04/27/19 15:40 Urine, Clean Catch Urine Culture - Final Culture exhibits no growth. 04/27/19 14:35 Blood Culture (Wb) - Anticubital Left Blood Culture - Preliminary No growth in 48 hours. 04/27/19 Unknown Blood Culture (Wb) #2 - Port Blood Culture - Preliminary No growth in 48 hours. Laboratory Results 04/27/19 14:38: Diff Path Review Reviewed 04/28/19 04:52: Diff Path Review Reviewed 04/29/19 05:13: Diff Path Review Reviewed 04/30/19 10:15: Diff Path Review Reviewed 05/01/19 05:20: WBC 2.2 L, RBC 3.73 L, Hgb 10.2 L, Hct 32.4 L, MCV 86.9, MCH 27.3, MCHC 31.5 L, RDW Std Deviation 52.7 H, RDW Coeff of Aishwarya 16.5 H, Plt Count 95 L, MPV 10.0, Neut % (Auto) Not Reportable, Absolute Neuts (auto) 1.1 L, Absolute Lymphs (auto) 0.59 L, Total Counted 100, Neutrophils % (Manual) 47, Band Neutrophils % 3, Lymphocytes % (Manual) 27, Monocytes % (Manual) 17 H, Eosinophils % (Manual) 1, Basophils % (Manual) 1, Metamyelocytes % 3 H, Myelocytes % 1 H, Nucleated RBCs/100 WBC 1, Diff Path Review Reviewed, Reactive Lymphocytes RARE, Platelet Estimate SLT DEC, Polychromasia 1+, Hypochromasia 1+, Anisocytosis 1+, Microcytosis 1+ Discharge Diet: No Restrictions Discharge Activity: Return to Normal Activity Home Medications: Medications to take at Discharge Acyclovir 400 mg PO BID 04/27/19 Allopurinol 300 mg PO DAILY 04/27/19 Loratadine [Claritin] 10 mg PO DAILY 04/27/19 Pantoprazole Sodium [Protonix] 40 mg PO DAILY 04/27/19 Rivaroxaban [Xarelto] 20 mg PO DAILY 04/27/19 Acetaminophen [Tylenol Tablet] 650 mg PO Q6H PRN PRN tab 05/01/19 levoFLOXacin tablet [Levaquin tablet] 500 mg PO DAILY #3 tab 05/01/19 Following Prescrptions Were Given to Patient: levoFLOXacin tablet [Levaquin tablet] 500 mg PO DAILY #3 tab Transmission Status: Received by [id number] Primary Care Physician: Allen Blair MD [Primary Care Provider] - Please follow up with your Primary Care Physician in: 1-2 weeks Please Follow Up With: Allen Blair MD Please Follow Up With: [facility] oncology When: as directed Disposition: Home Minutes spent on discharge:: 35 Patient Condition:: Stable Medical Necessity - Tobacco Use Smoking Status: Never smoker Tobacco Use: Non-smoker Meaningful Use Info Meaningful Use Diagnoses (Choose all that apply): None applicable
--- NOTE | 2019-05-02 13:56 | CASEMGMT ---
DORENE LOVE DC PHONE CALL DC DATE: 05.01.19 DC Disposition: Home Diagnosis on Discharge: Neutropenic Fever, NHL LACE/STRATA: 01/16 Intro role of CM to patient via phone. Pt states he has good understanding of instructions, f/u and medications. No questions. No care improvement suggestions given. Jose A SCHMIDN RN AC
== END 2019-05-01 11:02 | disposition home or self-care (01) | DRG 809 ==
LOC: ED 14:30 → PCU 17:58
PROVIDERS: Hospitalist; Physician Assistant; Admitting Provider Internal Medicine; Emergency Provider Emergency Medicine; Family Provider Family Medicine; PCP Family Medicine; Referring Provider Internal Medicine; Visit Provider Internal Medicine
DX: D70.1 Agranulocytosis secondary to cancer chemotherapy (principal); I27.82 Chronic pulmonary embolism; C85.90 Non-Hodgkin lymphoma, unspecified, unspecified site; R50.81 Fever presenting with conditions classified elsewhere; D61.810 Antineoplastic chemotherapy induced pancytopenia; Z79.01 Long term (current) use of anticoagulants; T45.1X5A Adverse effect of antineoplastic and immunosuppressive drugs, initial encounter; D47.2 Monoclonal gammopathy
CPT/HCPCS: 36591; 71046; 80048; 80053; 81001; 83605; 83735; 84100; 85025; 85610; 85730; 87040; 87086; 87641; 87804; 99285; J2185; J7030; J7050; A4216; J2405

== ENCOUNTER → 2019-05-02 12:57 | Outpatient (CLI) | payer OTHER, SELFPAY ==
[2019-04-27 18:17] VITALS: BMI 29.4
[2019-05-02 13:36] LABS: Hematocrit 33.8 % (40-54); Hemoglobin 10.7 g/dL (13.0-16.5); Mean Corp Hgb Conc 31.7 g/dL (32-36); Mean Corpuscular Hgb 27.8 pg (27.0-32.0); Mean Corpuscular Volume 87.8 fL (80-94); POSITIVE COUNT YES; POSITIVE DIFFERENTIAL YES; POSITIVE MORPHOLOGY YES; Platelet Count 168 K/mm3 (150-450); RBC Distribution Width CV 16.9 % (11.6-14.6); RBC Distribution Width SD 54.7 fl (35.1-43.9); Red Blood Count 3.85 M/mm3 (4.6-6.2); White Blood Count 3.1 K/mm3 (4.4-11.0)
[2019-05-02 13:38] LABS: Differential Indicated MANUAL DIFF
[2019-05-02 13:52] LABS: ALB/GLOB Ratio 0.9 RATIO (0.9-2.4); AST(SGOT) 28 U/L (15-37); Alanine Aminotransfer ALT/SGPT 37 U/L (16-61); Albumin, Serum 3.5 g/dL (3.2-5.0); Alkaline Phosphatase 95 U/L (45-117); Anion Gap 6 (5-15); BUN 10 mg/dL (7-18); BUN/Creat Ratio 13.2 RATIO (10-20); Calcium,Total 9.1 mg/dL (8.5-10.1); Chloride 105 mmol/L (98-107); Creatinine, Serum 0.76 mg/dL (0.70-1.30); EST Glomerular Filtration Rate 115 mL/min (>60); Est Glom Filt Rate - Afr Amer 139 mL/min (>60); Globulin 3.7 g/dL (2.2-4.2); Glucose 117 mg/dL (74-106); Potassium 3.7 mmol/L (3.5-5.1); Protein, Total 7.2 g/dL (6.4-8.2); Sodium Level 141 mmol/L (136-145)
[2019-05-02 14:51] LABS: Basophil 1 % (0-1); Eosinophil 5 % (0-5); Lymphocyte 14 % (19-41); Metamyelocyte 5 % (0-1); Monocyte 18 % (0-10); Neutrophil-Segmented 56 % (47-70); Platelet Estimate ADEQUATE (ADEQ); Promyelocyte 1 (0-0); Red Cell Morphology NORM C+C NORMAL (NORM C&C); Total Cells Counted 100 (MANUAL DIFF)
[2019-05-02 14:52] LABS: Absolute Neutrophil Count 1.7 X10^3/uL (2.0-7.7)
[2019-05-02 21:32] LABS: Xtra Tube EP Lab EXTRA TUBE
[2019-05-03 14:17] LABS: Pathologist Review Reviewed
== END ==
PROVIDERS: Family Provider Family Medicine; PCP Family Medicine
DX: C83.38 Diffuse large B-cell lymphoma, lymph nodes of multiple sites (principal)
CPT/HCPCS: 36591; 80053; 85025; A4216

== ENCOUNTER → 2019-05-04 12:30 | Outpatient (CLI) | payer OTHER, SELFPAY ==
[2019-04-27 18:17] VITALS: BMI 29.4
== END ==
PROVIDERS: Family Provider Family Medicine; PCP Family Medicine
DX: Z45.2 Encounter for adjustment and management of vascular access device (principal); C83.30 Diffuse large B-cell lymphoma, unspecified site
CPT/HCPCS: 36591; A4216

== ENCOUNTER → 2019-05-17 14:47 | Outpatient (CLI) | payer OTHER, SELFPAY ==
[2019-04-27 18:17] VITALS: BMI 29.4
[2019-05-17 15:17] LABS: Absolute Lymphocyte Count 0.31 X10^3/uL (0.83-4.51); Absolute Neutrophil Count 0.2 X10^3/uL (2.0-7.7); Basophil# 0.03 X10^3/uL; Basophil% 3.4 % (0-1); Eosinophil# 0.05 X10^3/uL; Eosinophils% 5.7 % (0-5); Hematocrit 36.6 % (40-54); Hemoglobin 11.7 g/dL (13.0-16.5); Lymphocyte # 0.31 X10^3/ul (4.0); Lymphocyte % 35.6 % (19-41); Mean Corpuscular Hgb 27.9 pg (27.0-32.0); Mean Corpuscular Volume 87.4 fL (80-94); Mean Platelet Vol. 9.5 fl (6.2-12.0); Monocyte# 0.23 X10^3/uL; Monocyte% 26.4 % (0-10); NRBC Flagged by Analyzer 0 % (0-5); Neutrophil # 0.22 X10^3/uL (2.7-7.7); Neutrophil % 25.5 % (47-70); POSITIVE COUNT YES; POSITIVE DIFFERENTIAL YES; POSITIVE MORPHOLOGY YES; Platelet Count 160 K/mm3 (150-450); RBC Distribution Width CV 15.8 % (11.6-14.6); RBC Distribution Width SD 50.3 fl (35.1-43.9); Red Blood Count 4.19 M/mm3 (4.6-6.2)
[2019-05-17 15:27] LABS: Differential Indicated SCAN CRITERIA MET
[2019-05-17 16:01] LABS: Anisocytosis RARE; Differential Comment SEE COMMENTS; Platelet Estimate ADEQUATE (ADEQ); Red Cell Morphology N CHROM NORMAL (NORM C&C)
[2019-05-17 16:39] LABS: White Blood Count 0.9 K/mm3 (4.4-11.0)
[2019-05-18 09:31] LABS: Pathologist Review Reviewed
== END ==
PROVIDERS: Family Provider Family Medicine; PCP Family Medicine; Referring Provider Family Medicine; Visit Provider Family Medicine
DX: Z45.2 Encounter for adjustment and management of vascular access device (principal); C83.38 Diffuse large B-cell lymphoma, lymph nodes of multiple sites
CPT/HCPCS: 36591; 85025; 96523; A4216

== ENCOUNTER → 2019-05-21 16:10 | Outpatient (CLI) | payer OTHER, SELFPAY ==
[2019-04-27 18:17] VITALS: BMI 29.4
[2019-05-21 16:31] LABS: Hematocrit 37.5 % (40-54); Hemoglobin 12.1 g/dL (13.0-16.5); Mean Corp Hgb Conc 32.3 g/dL (32-36); Mean Corpuscular Volume 86.8 fL (80-94); Mean Platelet Vol. 9.9 fl (6.2-12.0); POSITIVE DIFFERENTIAL YES; POSITIVE MORPHOLOGY YES; Platelet Count 114 K/mm3 (150-450); RBC Distribution Width CV 16.4 % (11.6-14.6); RBC Distribution Width SD 51.5 fl (35.1-43.9); Red Blood Count 4.32 M/mm3 (4.6-6.2); White Blood Count 2.4 K/mm3 (4.4-11.0)
[2019-05-21 16:55] LABS: ALB/GLOB Ratio 0.9 RATIO (0.9-2.4); AST(SGOT) 29 U/L (15-37); Alanine Aminotransfer ALT/SGPT 32 U/L (16-61); Albumin, Serum 3.5 g/dL (3.2-5.0); Alkaline Phosphatase 87 U/L (45-117); Anion Gap 5 (5-15); BUN 13 mg/dL (7-18); BUN/Creat Ratio 13.4 RATIO (10-20); Calcium,Total 9.1 mg/dL (8.5-10.1); Chloride 105 mmol/L (98-107); Creatinine, Serum 0.97 mg/dL (0.70-1.30); EST Glomerular Filtration Rate 87 mL/min (>60); Est Glom Filt Rate - Afr Amer 105 mL/min (>60); Glucose 127 mg/dL (74-106); Potassium 3.8 mmol/L (3.5-5.1); Protein, Total 7.5 g/dL (6.4-8.2); Sodium Level 137 mmol/L (136-145)
[2019-05-21 17:33] LABS: Differential Indicated MANUAL DIFF
[2019-05-21 17:40] LABS: Atypical Lymphocyte RARE %; Eosinophil 1 % (0-5); Lymphocyte 9 % (19-41); Metamyelocyte 2 % (0-1); Monocyte 21 % (0-10); Myelocyte 1 (0-0); Neutrophil-Band 14 % (0-5); Neutrophil-Segmented 52 % (47-70); Platelet Estimate SLT DEC (ADEQ); Red Cell Morphology NORM C+C NORMAL (NORM C&C); Total Cells Counted 100 (MANUAL DIFF)
[2019-05-21 17:42] LABS: Absolute Lymphocyte Count 0.22 X10^3/uL (0.83-4.51); Absolute Neutrophil Count 1.6 X10^3/uL (2.0-7.7)
[2019-05-22 13:24] LABS: Pathologist Review Reviewed
== END ==
PROVIDERS: Family Provider Family Medicine; PCP Family Medicine
DX: Z45.2 Encounter for adjustment and management of vascular access device (principal); C83.38 Diffuse large B-cell lymphoma, lymph nodes of multiple sites
CPT/HCPCS: 36592; 80053; 85025; A4216

== ENCOUNTER → 2019-06-22 16:25 | Outpatient (CLI) | payer OTHER, SELFPAY ==
[2019-04-27 18:17] VITALS: BMI 29.4
== END ==
PROVIDERS: PCP Family Medicine
DX: Z45.2 Encounter for adjustment and management of vascular access device (principal); C83.38 Diffuse large B-cell lymphoma, lymph nodes of multiple sites
CPT/HCPCS: 96523

== ENCOUNTER → 2019-07-19 10:10 | Outpatient (CLI) | payer OTHER, SELFPAY ==
[2019-04-27 18:17] VITALS: BMI 29.4
[2019-07-19 10:40] LABS: Absolute Lymphocyte Count 0.85 X10^3/uL (0.83-4.51); Absolute Neutrophil Count 0.4 X10^3/uL (2.0-7.7); Basophil# 0.01 X10^3/uL; Basophil% 0.5 % (0-1); Eosinophil# 0.07 X10^3/uL; Eosinophils% 3.8 % (0-5); Hematocrit 41.5 % (40-54); Lymphocyte # 0.85 X10^3/ul (4.0); Lymphocyte % 45.7 % (19-41); Mean Corp Hgb Conc 31.3 g/dL (32-36); Mean Corpuscular Hgb 27.1 pg (27.0-32.0); Mean Corpuscular Volume 86.6 fL (80-94); Mean Platelet Vol. 8.5 fl (6.2-12.0); Monocyte# 0.55 X10^3/uL; Monocyte% 29.6 % (0-10); NRBC Flagged by Analyzer 0 % (0-5); Neutrophil # 0.37 X10^3/uL (2.7-7.7); Neutrophil % 19.9 % (47-70); POSITIVE DIFFERENTIAL YES; Platelet Count 186 K/mm3 (150-450); RBC Distribution Width CV 12.1 % (11.6-14.6); RBC Distribution Width SD 38.5 fl (35.1-43.9); Red Blood Count 4.79 M/mm3 (4.6-6.2); White Blood Count 1.9 K/mm3 (4.4-11.0)
[2019-07-19 10:42] LABS: Differential Indicated SCAN CRITERIA MET
[2019-07-19 11:03] LABS: Differential Comment SCANNED
[2019-07-19 18:38] LABS: Xtra Tube EP Lab EXTRA TUBE
== END ==
PROVIDERS: PCP Family Medicine
DX: C83.38 Diffuse large B-cell lymphoma, lymph nodes of multiple sites (principal)
CPT/HCPCS: 36591; 85025; A4216

== ENCOUNTER → 2019-08-02 12:56 | Outpatient (CLI) | payer OTHER, SELFPAY ==
[2019-04-27 18:17] VITALS: BMI 29.4
[2019-08-02 13:49] LABS: Absolute Lymphocyte Count 0.93 X10^3/uL (0.83-4.51); Absolute Neutrophil Count 1.5 X10^3/uL (2.0-7.7); Basophil# 0.02 X10^3/uL; Basophil% 0.7 % (0-1); Eosinophil# 0.07 X10^3/uL; Eosinophils% 2.3 % (0-5); Hemoglobin 12.9 g/dL (13.0-16.5); Lymphocyte # 0.93 X10^3/ul (4.0); Lymphocyte % 30.7 % (19-41); Mean Corp Hgb Conc 31.5 g/dL (32-36); Mean Corpuscular Hgb 27.2 pg (27.0-32.0); Mean Corpuscular Volume 86.5 fL (80-94); Monocyte# 0.47 X10^3/uL; Monocyte% 15.5 % (0-10); NRBC Flagged by Analyzer 0 % (0-5); Neutrophil # 1.52 X10^3/uL (2.7-7.7); Neutrophil % 50.1 % (47-70); Platelet Count 198 K/mm3 (150-450); RBC Distribution Width CV 12.3 % (11.6-14.6); RBC Distribution Width SD 39.4 fl (35.1-43.9); Red Blood Count 4.74 M/mm3 (4.6-6.2)
[2019-08-02] MEDS: 0.9% NaCl VAD Flush IV (13:52)
== END ==
PROVIDERS: PCP Family Medicine
DX: C83.38 Diffuse large B-cell lymphoma, lymph nodes of multiple sites (principal)
CPT/HCPCS: 36591; 85025; A4216

== ENCOUNTER → 2019-10-04 10:20 | Outpatient (CLI) | payer OTHER, SELFPAY ==
[2019-04-27 18:17] VITALS: BMI 29.4
[2019-10-04] MEDS: 0.9 % NaCl (Sterile) Posiflush 10 mL IV (10:47)
[2019-10-04] MEDS: 0.9% NaCl VAD Flush IV (10:47)
[2019-10-04 11:00] LABS: Absolute Lymphocyte Count 1.05 X10^3/uL (0.83-4.51); Absolute Neutrophil Count 1.2 X10^3/uL (2.0-7.7); Basophil# 0.02 X10^3/uL; Basophil% 0.7 % (0-1); Eosinophil# 0.07 X10^3/uL; Eosinophils% 2.5 % (0-5); Lymphocyte # 1.05 X10^3/ul (4.0); Lymphocyte % 37.9 % (19-41); Mean Platelet Vol. 8.6 fl (6.2-12.0); Monocyte# 0.42 X10^3/uL; Monocyte% 15.2 % (0-10); NRBC Flagged by Analyzer 0 % (0-5); Neutrophil # 1.19 X10^3/uL (2.7-7.7); Platelet Count 151 K/mm3 (150-450); RBC Distribution Width CV 13.4 % (11.6-14.6); White Blood Count 2.8 K/mm3 (4.4-11.0)
[2019-10-04 11:15] LABS: ALB/GLOB Ratio 1.1 RATIO (0.9-2.4); AST(SGOT) 29 U/L (15-37); Alanine Aminotransfer ALT/SGPT 40 U/L (16-61); Albumin, Serum 3.9 g/dL (3.2-5.0); Alkaline Phosphatase 103 U/L (45-117); Anion Gap 3 (5-15); BUN 15 mg/dL (7-18); BUN/Creat Ratio 17.9 RATIO (10-20); Calcium,Total 9.3 mg/dL (8.5-10.1); Chloride 108 mmol/L (98-107); Creatinine, Serum 0.84 mg/dL (0.70-1.30); EST Glomerular Filtration Rate 102 mL/min (>60); Est Glom Filt Rate - Afr Amer 124 mL/min (>60); Globulin 3.4 g/dL (2.2-4.2); Glucose 135 mg/dL (74-106); LDH 210 U/L (87-241); Potassium 4.2 mmol/L (3.5-5.1); Protein, Total 7.3 g/dL (6.4-8.2); Sodium Level 139 mmol/L (136-145)
[2019-10-04 18:57] LABS: Xtra Tube EP Lab EXTRA TUBE
== END ==
PROVIDERS: PCP Family Medicine
DX: C83.38 Diffuse large B-cell lymphoma, lymph nodes of multiple sites (principal)
CPT/HCPCS: 36591; 80053; 83615; 85025; A4216

== ENCOUNTER → 2019-11-06 11:21 | Outpatient (CLI) | payer OTHER, SELFPAY ==
[2019-04-27 18:17] VITALS: BMI 29.4
[2019-11-06 12:01] LABS: Absolute Lymphocyte Count 1.36 X10^3/uL (0.83-4.51); Absolute Neutrophil Count 1.8 X10^3/uL (2.0-7.7); Basophil# 0.02 X10^3/uL; Basophil% 0.6 % (0-1); Eosinophil# 0.05 X10^3/uL; Eosinophils% 1.4 % (0-5); Hematocrit 42.9 % (40-54); Hemoglobin 13.3 g/dL (13.0-16.5); Lymphocyte # 1.36 X10^3/ul (4.0); Lymphocyte % 38.2 % (19-41); Mean Corpuscular Hgb 26.1 pg (27.0-32.0); Mean Corpuscular Volume 84.1 fL (80-94); Monocyte# 0.37 X10^3/uL; Monocyte% 10.4 % (0-10); NRBC Flagged by Analyzer 0 % (0-5); Neutrophil # 1.75 X10^3/uL (2.7-7.7); Neutrophil % 49.1 % (47-70); Platelet Count 161 K/mm3 (150-450); RBC Distribution Width CV 13.3 % (11.6-14.6); RBC Distribution Width SD 41.1 fl (35.1-43.9); White Blood Count 3.6 K/mm3 (4.4-11.0)
== END ==
PROVIDERS: PCP Family Medicine
DX: Z45.2 Encounter for adjustment and management of vascular access device (principal); C83.30 Diffuse large B-cell lymphoma, unspecified site
CPT/HCPCS: 36592; 85025; A4216

== ENCOUNTER → 2020-01-07 13:30 | Outpatient (CLI) | payer OTHER, SELFPAY ==
[2019-04-27 18:17] VITALS: BMI 29.4
[2020-01-07] MEDS: 0.9 % NaCl (Sterile) Posiflush 10 mL IV (13:42)
[2020-01-07] MEDS: 0.9% NaCl VAD Flush IV (13:43)
== END ==
PROVIDERS: PCP Family Medicine; Referring Provider Internal Medicine; Visit Provider Internal Medicine
DX: Z45.2 Encounter for adjustment and management of vascular access device (principal); C83.38 Diffuse large B-cell lymphoma, lymph nodes of multiple sites
CPT/HCPCS: 96523; A4216

== ENCOUNTER → 2020-02-13 | Outpatient (CLI) | payer OTHER, SELFPAY ==
[2019-04-27 18:17] VITALS: BMI 29.4
[2020-02-13] MEDS: 0.9% NaCl VAD Flush IV (13:15)
[2020-02-13] MEDS: 0.9 % NaCl (Sterile) Posiflush 10 mL IV (13:15)
== END | disposition home or self-care (01) ==
LOC: MEDOUTP 12:56
PROVIDERS: PCP Family Medicine; Referring Provider Internal Medicine; Visit Provider Internal Medicine
DX: Z45.2 Encounter for adjustment and management of vascular access device (principal); C83.30 Diffuse large B-cell lymphoma, unspecified site
CPT/HCPCS: 96523; A4216

== ENCOUNTER → 2020-04-14 12:55 | Outpatient (CLI) | payer OTHER, SELFPAY ==
[2019-04-27 18:17] VITALS: BMI 29.4
[2020-04-14 13:30] LABS: Absolute Lymphocyte Count 1.25 X10^3/uL (0.83-4.51); Absolute Neutrophil Count 2.7 X10^3/uL (2.0-7.7); Basophil# 0.03 X10^3/uL; Basophil% 0.7 % (0-1); Eosinophil# 0.17 X10^3/uL; Eosinophils% 3.7 % (0-5); Hematocrit 44.9 % (40-54); Lymphocyte # 1.25 X10^3/ul (4.0); Lymphocyte % 27.5 % (19-41); Mean Corp Hgb Conc 31.2 g/dL (32-36); Mean Corpuscular Hgb 26.5 pg (27.0-32.0); Monocyte# 0.35 X10^3/uL; Monocyte% 7.7 % (0-10); NRBC Flagged by Analyzer 0 % (0-5); Neutrophil # 2.73 X10^3/uL (2.7-7.7); Platelet Count 177 K/mm3 (150-450); RBC Distribution Width CV 13.9 % (11.6-14.6); RBC Distribution Width SD 42.8 fl (35.1-43.9); Red Blood Count 5.28 M/mm3 (4.6-6.2); White Blood Count 4.6 K/mm3 (4.4-11.0)
[2020-04-14 13:46] LABS: ALB/GLOB Ratio 1.1 RATIO (0.9-2.4); AST(SGOT) 23 U/L (15-37); Alanine Aminotransfer ALT/SGPT 41 U/L (16-61); Alkaline Phosphatase 93 U/L (45-117); Anion Gap 4 (5-15); BUN 10 mg/dL (7-18); BUN/Creat Ratio 10.5 RATIO (10-20); Calcium,Total 9.4 mg/dL (8.5-10.1); Chloride 107 mmol/L (98-107); Creatinine, Serum 0.95 mg/dL (0.70-1.30); EST Glomerular Filtration Rate 88 mL/min (>60); Est Glom Filt Rate - Afr Amer 107 mL/min (>60); Globulin 3.6 g/dL (2.2-4.2); Glucose 113 mg/dL (74-106); Potassium 4.1 mmol/L (3.5-5.1); Protein, Total 7.6 g/dL (6.4-8.2); Sodium Level 139 mmol/L (136-145)
[2020-04-14 13:51] LABS: LDH 187 U/L (87-241)
[2020-04-14 21:25] LABS: Xtra Tube EP Lab EXTRA TUBE
== END ==
PROVIDERS: PCP Family Medicine; Referring Provider Internal Medicine; Visit Provider Internal Medicine
DX: C83.38 Diffuse large B-cell lymphoma, lymph nodes of multiple sites (principal)
CPT/HCPCS: 36591; 80053; 83615; 85025; 96523; A4216

== ENCOUNTER → 2020-05-13 11:07 | Outpatient (CLI) | payer OTHER, SELFPAY ==
[2019-04-27 18:17] VITALS: BMI 29.4
[2020-05-13] MEDS: 0.9 % NaCl (Sterile) Posiflush 10 mL IV ×2 (12:00→12:10)
[2020-05-13] MEDS: 0.9% NaCl VAD Flush IV ×2 (12:00→12:01)
[2020-05-13 12:17] LABS: Absolute Neutrophil Count 2.1 X10^3/uL (2.0-7.7); Basophil# 0.02 X10^3/uL; Basophil% 0.5 % (0-1); Eosinophil# 0.11 X10^3/uL; Eosinophils% 2.8 % (0-5); Hematocrit 43.2 % (40-54); Hemoglobin 13.3 g/dL (13.0-16.5); Lymphocyte % 30.7 % (19-41); Mean Corp Hgb Conc 30.8 g/dL (32-36); Mean Corpuscular Hgb 25.9 pg (27.0-32.0); Mean Platelet Vol. 8.7 fl (6.2-12.0); Monocyte# 0.43 X10^3/uL; NRBC Flagged by Analyzer 0 % (0-5); Neutrophil # 2.14 X10^3/uL (2.7-7.7); Neutrophil % 54.7 % (47-70); Platelet Count 172 K/mm3 (150-450); RBC Distribution Width CV 13.6 % (11.6-14.6); RBC Distribution Width SD 42.2 fl (35.1-43.9); Red Blood Count 5.14 M/mm3 (4.6-6.2); White Blood Count 3.9 K/mm3 (4.4-11.0)
[2020-05-13 12:26] LABS: ALB/GLOB Ratio 1.1 RATIO (0.9-2.4); AST(SGOT) 24 U/L (15-37); Alanine Aminotransfer ALT/SGPT 45 U/L (16-61); Alkaline Phosphatase 102 U/L (45-117); Anion Gap 6 (5-15); BUN 9 mg/dL (7-18); BUN/Creat Ratio 9.7 RATIO (10-20); Calcium,Total 9.4 mg/dL (8.5-10.1); Chloride 105 mmol/L (98-107); Creatinine, Serum 0.93 mg/dL (0.70-1.30); EST Glomerular Filtration Rate 90 mL/min (>60); Est Glom Filt Rate - Afr Amer 109 mL/min (>60); Globulin 3.5 g/dL (2.2-4.2); Glucose 84 mg/dL (74-106); LDH 199 U/L (87-241); Potassium 4.2 mmol/L (3.5-5.1); Protein, Total 7.5 g/dL (6.4-8.2); Sodium Level 139 mmol/L (136-145)
[2020-05-13 20:07] LABS: Xtra Tube EP Lab EXTRA TUBE
== END ==
PROVIDERS: PCP Family Medicine
DX: Z45.2 Encounter for adjustment and management of vascular access device (principal); C83.38 Diffuse large B-cell lymphoma, lymph nodes of multiple sites
CPT/HCPCS: 36591; 80053; 83615; 85025; 96523; A4216

== ENCOUNTER 2020-07-24 10:17 | Outpatient (CLI) | payer OTHER, SELFPAY ==
[2019-04-27 18:17] VITALS: BMI 29.4
== END 2020-07-24 12:00 | disposition home or self-care (01) ==
PROVIDERS: PCP Family Medicine
DX: C83.38 Diffuse large B-cell lymphoma, lymph nodes of multiple sites (principal)
CPT/HCPCS: 96523; A4216

== ENCOUNTER → 2020-08-21 09:57 | Outpatient (CLI) | payer OTHER, SELFPAY ==
[2019-04-27 18:17] VITALS: BMI 29.4
== END ==
PROVIDERS: PCP Family Medicine
DX: Z45.2 Encounter for adjustment and management of vascular access device (principal); C83.38 Diffuse large B-cell lymphoma, lymph nodes of multiple sites
CPT/HCPCS: 96523; A4216

== ENCOUNTER → 2020-10-28 14:21 | Outpatient (CLI) | payer OTHER, SELFPAY ==
[2019-04-27 18:17] VITALS: BMI 29.4
== END ==
PROVIDERS: PCP Family Medicine; Referring Provider Internal Medicine; Visit Provider Internal Medicine
DX: Z45.2 Encounter for adjustment and management of vascular access device (principal); C83.38 Diffuse large B-cell lymphoma, lymph nodes of multiple sites
CPT/HCPCS: 96523

== ENCOUNTER → 2020-11-25 14:32 | Outpatient (CLI) | payer OTHER, SELFPAY ==
[2019-04-27 18:17] VITALS: BMI 29.4
[2020-11-25] MEDS: 0.9 % NaCl (Sterile) Posiflush 10 mL IV (14:36)
== END ==
PROVIDERS: PCP Family Medicine; Referring Provider Internal Medicine; Visit Provider Internal Medicine
DX: Z45.2 Encounter for adjustment and management of vascular access device (principal); C83.38 Diffuse large B-cell lymphoma, lymph nodes of multiple sites
CPT/HCPCS: 96523

== ENCOUNTER → 2021-01-22 14:21 | Outpatient (CLI) | payer OTHER, SELFPAY ==
[2019-04-27 18:17] VITALS: BMI 29.4
[2021-01-22] MEDS: 0.9 % NaCl (Sterile) Posiflush 10 mL IV (14:29)
== END ==
PROVIDERS: PCP Family Medicine; Referring Provider Internal Medicine; Visit Provider Internal Medicine
DX: Z45.2 Encounter for adjustment and management of vascular access device (principal); C83.38 Diffuse large B-cell lymphoma, lymph nodes of multiple sites
CPT/HCPCS: 96523

== ENCOUNTER → 2021-02-19 13:34 | Outpatient (CLI) | payer OTHER, SELFPAY ==
[2019-04-27 18:17] VITALS: BMI 29.4
[2021-02-19] MEDS: 0.9 % NaCl (Sterile) Posiflush 10 mL IV (13:39)
[2021-02-19] MEDS: 0.9% NaCl VAD Flush IV (13:51)
== END ==
PROVIDERS: PCP Family Medicine; Referring Provider Internal Medicine; Visit Provider Internal Medicine
DX: Z45.2 Encounter for adjustment and management of vascular access device (principal)
CPT/HCPCS: 96523; A4216

== ENCOUNTER → 2021-03-19 13:56 | Outpatient (CLI) | payer OTHER, SELFPAY ==
[2021-03-19] MEDS: 0.9 % NaCl (Sterile) Posiflush 10 mL IV (14:06)
== END ==
PROVIDERS: PCP Family Medicine; Referring Provider Internal Medicine; Visit Provider Internal Medicine
DX: Z45.2 Encounter for adjustment and management of vascular access device (principal)
CPT/HCPCS: 96523

== ENCOUNTER → 2022-06-28 | Outpatient (CLI) | payer OTHER, SELFPAY ==
[2022-06-28 16:21] LABS: Anion Gap 7 (5-15); BUN 14 mg/dL (7-18); BUN/Creat Ratio 15.6 RATIO (10-20); Calcium,Total 9.6 mg/dL (8.5-10.1); Chloride 102 mmol/L (98-107); Cholesterol 204 mg/dL (200); EST Glomerular Filtration Rate 94 mL/min (>60); Est Glom Filt Rate - Afr Amer 113 mL/min (>60); Glucose 88 mg/dL (74-106); High Density Lipoprotein 49 mg/dL; PSA,Total - Annual Screen 1.51 ng/mL (0.00-4.00); Sodium Level 137 mmol/L (136-145); Triglycerides 107 mg/dL; Very Low Density Lipoprotein 21 mg/dL (5-40)
== END | disposition home or self-care (01) ==
LOC: MFPLAB 11:29
PROVIDERS: PCP Family Medicine; Visit Provider Family Medicine
DX: Z13.1 Encounter for screening for diabetes mellitus (principal); Z13.220 Encounter for screening for lipoid disorders; Z12.5 Encounter for screening for malignant neoplasm of prostate
CPT/HCPCS: 36415; 80048; 80061; 84153; G0103

== ENCOUNTER 2024-08-03 06:24 | Day surgery (SDC) | payer OTHER, SELFPAY ==
[2024-08-03] VITALS (9 sets, daily range): BP systolic 107–125; BP diastolic 76–97; PULSE 72–79; RESP 16–18; TEMP 36.2; O2SAT 96–98; BMI 32.5
--- NOTE | 2024-08-03 07:18 | HP.PCM_ITS ---
History and Physical Date of Admission: 08/03/24 Intake Vital Signs 07/25/2512:09 Weight: 234 lb BP 119/86 H Blood Pressure Location Rt brachial Position Sitting Respiration 17 Pulse 93 Pulse Source Monitor Pulse Oximetry (%) 97 Oxygen Delivery Method room air Intake Visit Reasons: POSITIVE COLOGUARD Chief Complaint: positive cologuard Is patient in pain?: No Allergies No Known Allergies Allergy (Verified 07/25/24 13:11) PFSH Medical History (Updated 07/25/24 @ 13:09 by Zaida Groves) Anemia Surgical History No history of previous surgery Family History Grandfather Heart diseaseFather Heart diseaseBrother Heart diseaseSister Breast cancerSister Myeloma Social History Smoking Status: Never smoker HPI HPI HPI: Patient is a 54-year-old male who has never had a colonoscopy who comes with a positive Cologuard. He has been doing Cologuard's every 3 years since he has been 48. He denies abdominal pain or blood in the stool. No family history of colon cancer. ROS General General: Yes weight change; No appetite, fatigue, colon cancer, breast cancer or weakness HEENT HEENT: No difficulty swallowing, eye injury, eye surgery, swollen glands or hoarseness Endo Endocrine: No thyroid disease, diabetes mellitus, thyroid cancer, Hair loss, heat intolerance or cold intolerance Skin Skin: No rash or changing moles Musc Musculoskeletal: No back problems, arthritis, rheumatoid arthritis, gout or joint pain Cardio Cardiovascular: No murmur, pacemaker, heart disease, atrial fibrillation, high blood pressure, heart attack, heart stent, palpitations, shortness of breath with exertion or chest pain Psych Psychiatric: No depression, anxiety or hearing voices Resp Respiratory: No shortness of breath, No sleep apnea, No cough, No COPD, No asthma, No emphysema and No wheezing Gastro Gastrointestinal: No abdominal pain, No nausea or vomiting, No diarrhea, No constipation, No blood in stool, Yes acid reflux, No hemorrhoids, No ulcers, No gallbladder problem and No black,tarry stools Leonel Hematologic: No blood thinners, No blood disorders, No bleeding, No anemia and Yes blood clots Additional Details: hx of in lung, short term blood thinner Neuro Neurologic: No system reviewed and no additional complaints, except as documented, No as per HPI, No abnormal gait, No abnormal hearing, No abnormal movements, No abnormal speech, No behavioral changes, No burning sensations, No confusion, No convulsions, No disequilibrium, No dizziness, No localized weakness, No frequent falls, No headache(s), No lack of coordination, No loss of vision, No memory loss, No numbness, No other visual disturbances, No radicular pain, No restless legs, No sensory deficit, No syncope, No tingling, No tremor(s), No weakness and No other Exam Const General: cooperative Orientation: alert and oriented x3 HENMT Head: normal to inspection Neck Neck: normal visual inspection and full ROM Chest Chest palpation & inspection: normal inspection of the chest Resp Effort & Inspection: normal respiratory effort Auscultation: clear to auscultation bilaterally Cardio Rate: regular rate Rhythm: regular rhythm GI Inspection: non-distended Palpation: soft and nontender Skin General: no rashes or lesions noted Neuro General: patient alert and patient oriented x3 Extrem General: full ROM Psych Appearance: grossly normal Mental Status: mental status grossly normal Assessment and Plan Assessment and Plan (1) Positive colorectal cancer screening using Cologuard test: Status: Acute Plan: I explained endoscopy in detail to the patient. I explained the risks including but not limited to stroke or heart attack with anesthesia, perforation of the GI tract, bleeding, infection. I explained that any of these could necessitate further emergency surgery. The patient understands and all questions were answered sufficiently. The patient wishes to proceed with procedure. Tanmay Isidro MD Pager: [facility] [address] [place] [address], [address] [place] [address] Office: I have examined the patient and the H&P has been reviewed. There are no clinical changes since date of exam.
--- NOTE | 2024-08-03 07:19 | PRE.ANES_ITS ---
ASA Classification* ASA Classification ASA Classification: 2 Assessment & Plan Anesthesia* Anesthesia Assessment Anesthesia Assessment: Discussed sedation and/or anesthesia options, risks, benefits, and alternatives with patient/parents/legal guardian/POA. Questions invited. The patient/parents/legal guardian/POA seems to understand and agrees to proceed with anesthesia plan. Reviewed the physical assessment, medical history, allergy history and patient home medications list prior to surgery/procedure/anesthetic and documented any changes. Performed airway and anesthesia risk assessments. Anesthesia Type Anesthesia Type: MAC History Source History Obtained from:: Patient, Chart and Significant Other Anesthesia Focused Assessment* Temperature: 97.1 F Pulse Rate: 79 Blood Pressure: 125/97 Respiratory Rate: 18 Pulse Ox: 98 Oxygen Delivery Method: Room Air Airway Assessment Mouth opens: >3 cm Mallampati Score: II Teeth Condition: Intact Neck Range of motion (ROM): Full ROM Focused Labs Anesthesia Preop lab: CBC WBC 3.9 K/mm3 (4.4-11.0) L 05/13/20 12:00 05/13/20 RBC 5.14 M/mm3 (4.6-6.2) 05/13/20 12:00 05/13/20 Hgb 13.3 g/dL (13.0-16.5) 05/13/20 12:00 05/13/20 Hct 43.2 % (40-54) 05/13/20 12:00 05/13/20 Plt Count 172 K/mm3 (150-450) 05/13/20 12:00 05/13/20 CHEMISTRY Potassium 4.0 mmol/L (3.5-5.1) 06/28/22 11:30 06/28/22 Sodium 137 mmol/L (136-145) 06/28/22 11:30 06/28/22 Magnesium 1.8 mg/dL (1.6-2.6) 04/27/19 14:38 04/27/19 Phosphorus 3.0 mg/dL (2.5-4.9) 04/27/19 14:38 04/27/19 BUN 14 mg/dL (7-18) 06/28/22 11:30 06/28/22 Creatinine 0.90 mg/dL (0.70-1.30) 06/28/22 11:30 06/28/22 Glucose 88 mg/dL (74-106) 06/28/22 11:30 06/28/22 TSH 0.81 uIU/mL (0.358-3.74) 12/27/18 17:04 COAG PT 22.6 SECONDS (11.7-14.9) H 04/27/19 14:38 04/15 08/01 Pre-Assessment Diagnosis/Proposed Procedure Planned Operative Procedure(s): CSCOPE Anesthesia History Anesthesia History - customer engagement specialist: Anesthesia History - customer engagement specialist Hx Hospitalization No 08/01/24 09:39 Any Problems With Anesthesia No 08/01/24 09:39 Cholinesterase deficiency No 08/01/24 09:39 You/Your Family Experience No 08/01/24 09:39 fever (hyperthermia) with Relationship Recent Exposure to Contagious No 08/03/24 06:43 Disease Does patient have nerve No 08/01/24 09:39 stimulator Patient instructed to have device shut off --Does patient have Pacemaker No 08/03/24 06:43 or ICD? When Was Last Pacemaker Check QUESTION #4 FULL TEXT: You/Your Family Experience fever (hyperthermia) with Anesthesia Last Oral Intake Last Oral intake: Last Oral Intake NPO since 20:00 08/03/24 06:43 Meds taken in AM with sips of water? Meds patient instructed to take am of surgery PONV PONV - customer engagement specialist: PONV - customer engagement specialist Female No 08/01/24 09:39 HX of Motion Sickness No 08/01/24 09:39 HX of N/V After Surgery No 08/01/24 09:39 Non-Smoker Yes 08/01/24 09:39 Duration of Surgery greater No 08/01/24 09:39 than 60 minutes Number of Risk Factors 1 08/01/24 09:39 PONV Score Low Risk 08/01/24 09:39 Height & Weight Height & Weight: Anesthesia: Height & Weight Height 5 ft 10 in 08/03/24 06:43 Weight: 103 kg 08/03/24 06:43 Body Mass Index (BMI) 32.5 08/03/24 06:43 Respiratory Assessment Respiratory Assessment - customer engagement specialist: Respiratory Tract Infection Hx - customer engagement specialist Hx Respiratory Tract Infection No 08/01/24 09:39 STOP Sleep Apnea STOP Sleep Apnea - customer engagement specialist: STOP Sleep Apnea - customer engagement specialist Hx Hypertension No 08/01/24 09:39 Hx Sleep Apnea No 08/01/24 09:39 CPAP BIPAP Do you snore loudly (louder Yes 08/01/24 09:39 than talking or can be heard Do you often feel tired/ No 08/01/24 09:39 fatigued/ sleepy during daytime? Has anyone observed you stop No 08/01/24 09:39 breathing during sleep? STOP Results Negative 08/01/24 09:39 QUESTION #5 FULL TEXT : Do you snore loudly (louder than talking or can be heard through closed doors)? Tobacco Use History Tobacco Use History - customer engagement specialist: Tobacco Use History - customer engagement specialist Tobacco Use Smoking Status Never smoker 08/01/24 09:39 Hx Tobacco Use No 08/01/24 09:39 Years Smoking Packs Smoked per Day Smoking Cessation Date was within the last 15 years Hx Smoking Cessation Date Hx Smoking Cessation Counseling Hematologic Medial History Hematologic Hx - customer engagement specialist: Hematologic Medical Hx - truer pinion and wheel Hx of Blood Transfusion No 08/01/24 09:39 Hx of Transfusion in last 3 No 08/01/24 09:39 Months Date of Last Transfusion (if within last 3 months) Ever experience any problems No 08/01/24 09:39 with transfusion(s)? Specify any problems Hx of Preganancy in last 3 N/A 08/01/24 09:39 Months Nurse Filling Out Transfusion DSCHRIBER 08/01/24 09:39 & Questions: Date: 08/01/24 08/01/24 09:39 Time: 09:41 08/01/24 09:39 Patient unable to answer at this time (ie. confused, unrespo /Reproduction History /Reproductive History - customer engagement specialist: /Reproductive Hx- customer engagement specialist Hx Now No 08/01/24 09:39 Gestational Age (in weeks): EDC: Hx Hx Para Hx Section SAB No 08/01/24 09:39 PFS Medical History (Updated 08/01/24 @ 09:48 by Martha Chavez) Wears glasses Alcohol use Pulmonary embolism Back pain Gastric reflux Non-smoker History of echocardiogram Lymphoma in remission Home Medications ?Medication ?Instructions ?Recorded ?Last Taken ?Type cider 1 tab PO DAILY 07/25/2407/14 History lhxevkr-Tv-bnmhdwwmopdmtxor-tea 500 mg-100 mcg-300 mg-60 mg tab (Apple Cider Vinegar Plus) Allergy/AdvReac Type Severity Reaction Status Date / Time No Known Allergies Allergy Verified 08/03/24 06:42 Family History Grandfather Heart disease Father Heart disease Brother Heart disease Sister Breast cancer Sister Myeloma Surgical History (Updated 08/01/24 @ 09:48 by Martha Chavez) Hx of biopsy Social History Smoking Status: Never smoker Review of Systems (Anesthesia) ROS Narrative System reviewed and no additional complaints, except as documented.
--- NOTE | 2024-08-03 08:09 | OP.COLON_ITS ---
Patient Name: Nabil Lee Procedure Date: 08/03/2024 7:48 AM Date of : 1970 Age: 54 Procedure: Colonoscopy Indications: Positive Cologuard test Providers: Tanmay Isidro MD Referring MD: Allen Blair Medicines: Propofol per Anesthesia Patient Profile: This is a 54 year old male. Refer to note in patient chart for documentation of history and physical. Last Colonoscopy: none. The patient's first colonoscopy is today. Complications: No immediate complications. Procedure: Pre-Anesthesia Assessment: - Prior to the procedure, a History and Physical was performed, and patient medications and allergies were reviewed. The patient's tolerance of previous anesthesia was also reviewed. The risks and benefits of the procedure and the sedation options and risks were discussed with the patient. All questions were answered, and informed consent was obtained. Prior Anticoagulants: The patient has taken no anticoagulant or antiplatelet agents. After reviewing the risks and benefits, the patient was deemed in satisfactory condition to undergo the procedure. After I obtained informed consent, the scope was passed under direct vision. Throughout the procedure, the patient's blood pressure, pulse, and oxygen saturations were monitored continuously. The pediatric colonoscope was introduced through the anus and advanced to the cecum, identified by appendiceal orifice and ileocecal valve. The colonoscopy was performed without difficulty. The patient tolerated the procedure well. The quality of the bowel preparation was good. The ileocecal valve, appendiceal orifice, and rectum were photographed. Scope In: 7:58:13 AM Scope Withdrawal Time 0 hours 3 minutes 48 seconds Scope Out: 8:05:52 AM Total Procedure Duration Time 0 hours 7 minutes 39 seconds Findings: The entire examined colon appeared normal on direct and retroflexion views. Impression: - The entire examined colon is normal on direct and retroflexion views. - No specimens collected. Recommendation: - Discharge patient to home. - Resume previous diet. - Continue present medications. - Repeat colonoscopy in 10 years for screening purposes. Procedure Code(s): --- Professional --- 51183, Colonoscopy, flexible; diagnostic, including collection of specimen(s) by brushing or washing, when performed (separate procedure) Diagnosis Code(s): --- Professional --- R19.5, Other fecal abnormalities CPT copyright 2021 [employer] [place] [employer]. All rights reserved. The codes documented in this report are preliminary and upon production broaching machine operator review may be revised to meet current compliance requirements. Tanmay Isidro MD 08/03/2024 8:08:25 AM This report has been signed electronically. Number of Addenda: 0 Note Initiated On: 08/03/2024 7:48 AM
--- NOTE | 2024-08-03 08:09 | OP.CCLET_ITS ---
08/03/2024 Allen Blair [address] [place] [address] Re : Colonoscopy procedure for Nabil Lee Dear Dr. Blair This procedure was performed on Saturday, August 03, 2024. My impressions and recommendations are as follows: Impressions : - The entire examined colon is normal on direct and retroflexion views. - No specimens collected. Recommendations : - Discharge patient to home. - Resume previous diet. - Continue present medications. - Repeat colonoscopy in 10 years for screening purposes. My findings are described in the full procedure note, which is enclosed. If I can be of further assistance, please feel free to contact me at Doctor phone number(s): , Work: . Sincerely, Tanmay Isidro MD 08/03/2024 8:08:25 AM This report has been signed electronically.
--- NOTE | 2024-08-03 08:12 | PCM.POST.ANE ---
Anesthesia: Postop Eval I Current Vital Signs Temperature: 97.1 F Pulse Rate: 78 Blood Pressure: 110/76 Respiratory Rate: 16 Pulse Ox: 98 Oxygen Delivery Method: Room Air Assessment Airway patent: Yes Spontaneous unlabored respirations: Yes Mental status: Awake and Calm nausea: No Vomiting: No Anesthesia Complication: No Fluid Hydration Crystalloid volume administer (ml): 20 Total IV fluid infused: 20 Progress Note Anesthesia document: Postop Eval 1 completed: Yes
--- NOTE | 2024-08-03 11:41 | POSTOPAN2_ITS ---
Anesthesia Postop Eval I Sum Postop Eval Completion status Anesthesia document: Postop Eval 1 completed: Yes Anesthesia Postop Eval I Summary Anesthesia Postop Eval I Summary: Anesthesia Postop Eval I: Assessment Summary Airway patent Yes 08/03/24 08:13 BIOMEDICAL EQUIPMENT SUPPORT SPECIALIST.BREEZYOBSaeed Spontaneous unlabored Yes 08/03/24 08:13 BIOMEDICAL EQUIPMENT SUPPORT SPECIALIST.MONET respirations Mental status Awake,Calm 08/03/24 08:13 BIOMEDICAL EQUIPMENT SUPPORT SPECIALIST.MONET nausea No 08/03/24 08:13 BIOMEDICAL EQUIPMENT SUPPORT SPECIALIST.MONET Vomiting No 08/03/24 08:13 BIOMEDICAL EQUIPMENT SUPPORT SPECIALIST.MONET Anesthesia Postop Eval I: Fluid Summary Crystalloid volume administer 20 08/03/24 08:13 BIOMEDICAL EQUIPMENT SUPPORT SPECIALIST.MONET (ml) Colloids volume administered ( ml) Blood Product volume administered (ml) Total IV fluid infused 20 08/03/24 08:13 BIOMEDICAL EQUIPMENT SUPPORT SPECIALIST.MONET Anesthesia Postop Eval I: Summary Notes Anesthesia Complication No 08/03/24 08:13 BIOMEDICAL EQUIPMENT SUPPORT SPECIALIST.MONET Anesthesia Complication Comment: Post-operative progress note Anesthesia: Postop Eval II Evaluation Mental status: Awake Pain Level: 0 nausea: No Vomiting: No Complications Anesthesia Complication: No
--- NOTE | 2024-08-03 11:41 | PCM.POSTANE2 ---
Anesthesia Postop Eval I Sum Postop Eval Completion status Anesthesia document: Postop Eval 1 completed: Yes Anesthesia Postop Eval I Summary Anesthesia Postop Eval I Summary: Anesthesia Postop Eval I: Assessment Summary Airway patent Yes 08/03/24 08:13 MAGNETO SPECIALIST.BREEZYOBSaeed Spontaneous unlabored Yes 08/03/24 08:13 MAGNETO SPECIALIST.MONET respirations Mental status Awake,Calm 08/03/24 08:13 MAGNETO SPECIALIST.MONET nausea No 08/03/24 08:13 MAGNETO SPECIALIST.MONET Vomiting No 08/03/24 08:13 MAGNETO SPECIALIST.MONET Anesthesia Postop Eval I: Fluid Summary Crystalloid volume administer 20 08/03/24 08:13 MAGNETO SPECIALIST.MONET (ml) Colloids volume administered ( ml) Blood Product volume administered (ml) Total IV fluid infused 20 08/03/24 08:13 MAGNETO SPECIALIST.MONET Anesthesia Postop Eval I: Summary Notes Anesthesia Complication No 08/03/24 08:13 MAGNETO SPECIALIST.MONET Anesthesia Complication Comment: Post-operative progress note Anesthesia: Postop Eval II Evaluation Mental status: Awake Pain Level: 0 nausea: No Vomiting: No Complications Anesthesia Complication: No
== END 2024-08-03 08:59 | disposition home or self-care (01) ==
LOC: EN 06:25 → AC 06:27
PROVIDERS: PCP Family Medicine; Referring Provider Family Medicine; Visit Provider Surgery
PROC: 0DJD8ZZ Inspection of Lower Intestinal Tract, Via Natural or Artificial Opening Endoscopic (ICD-10-PCS; CPT 45378; principal; 2024-08-03 07:25)
DX: R19.5 Other fecal abnormalities (principal)
CPT/HCPCS: 45378; A4216

== ENCOUNTER → 2025-04-23 | Outpatient (CLI) | payer OTHER, SELFPAY ==
[2025-04-23 17:47] LABS: Hematocrit 42.6 % (40-54); Hemoglobin 13.4 g/dL (13.0-16.5); Immature Granulocytes Count 0.020 X10^3/uL (0.0-0.0); Mean Corp Hgb Conc 31.5 g/dL (32-36); Mean Corpuscular Volume 84.2 fL (80-94); Mean Platelet Vol. 9.0 fl (6.2-12.0); NRBC Flagged by Analyzer 0 % (0-5); Platelet Count 217 K/mm3 (150-450); RBC Distribution Width CV 14.0 % (11.6-14.6); RBC Distribution Width SD 43.0 fl (35.1-43.9); Red Blood Count 5.06 M/mm3 (4.6-6.2); White Blood Count 4.6 K/mm3 (4.4-11.0)
== END | disposition home or self-care (01) ==
LOC: MTLAB 16:25
PROVIDERS: PCP Family Medicine; Referring Provider Nurse Practitioner Family; Visit Provider Nurse Practitioner Family
DX: C85.10 Unspecified B-cell lymphoma, unspecified site (principal)
CPT/HCPCS: 36415; 85025

== ENCOUNTER → 2025-04-29 | Outpatient (CLI) | payer OTHER, SELFPAY ==
--- NOTE | 2025-04-29 16:08 | US_ITS ---
PROCEDURE: EXT NON VASC LIMITED/SOFT TISS 04/29/2025 REASON FOR EXAM: LUMP TECHNIQUE: Procedure Code: [id number] Modality: US Procedure: EXT NON VASC LIMITED/SOFT TISS US/Ext Non Vasc Limited/Soft Tiss IMPRESSION: Within the right arm region of interest, no sonographic evidence of soft tissue abnormality is seen. Reading Location: [facility]
== END | disposition home or self-care (01) ==
PROVIDERS: PCP Family Medicine; Referring Provider Nurse Practitioner Family; Visit Provider Nurse Practitioner Family
DX: R22.31 Localized swelling, mass and lump, right upper limb (principal)
CPT/HCPCS: 76882